=== PATIENT | male | born 1965 | race Caucasian/White ===

== ENCOUNTER 2025-04-24 15:48 | Inpatient (IN) | payer OTHER, SELFPAY ==
[2025-04-24 15:30] VITALS: BP 88/65; PULSE 110; RESP 16; TEMP 36.4; BMI 29.2
--- NOTE | 2025-04-24 15:33 | CTR_ITS ---
PROCEDURE INFORMATION: Exam: CT Head Without Contrast Exam date and time: 04/24/2025 4:14 PM Age: 60 years old Clinical indication: Weakness, extremity; Bilateral TECHNIQUE: Imaging protocol: Computed tomography of the head without contrast. Radiation optimization: All CT scans at this facility use at least one of these dose optimization techniques: automated exposure control; mA and/or kV adjustment per patient size (includes targeted exams where dose is matched to clinical indication); or iterative reconstruction. COMPARISON: CT head wo con* [id number] 12/30/2018 7:02 PM RADIATION DOSE METRICS: Total DLP (mGy-cm): 1116.38 FINDINGS: Brain: Moderate changes of global brain atrophy and chronic white matter ischemia. This has developed since the prior study in 2019. No acute ischemic change, hemorrhage, or focal mass lesion is evident. Calcification is identified in the anterior aspect of the 3rd ventricle at the level of the foramen Monro, potentially representing a chronic colloid cyst. There is no hydrocephalus associated colloid cyst. No interval change has occurred. Additional abnormal calcifications are seen. There is no evidence of intracranial mass lesion. Cerebral ventricles: See Brain finding. Paranasal sinuses: Visualized sinuses are unremarkable. No fluid levels. Mastoid air cells: Fluid is identified within the right mastoid tip consistent with mastoiditis, new from prior study. Bones: Unremarkable. No acute fracture. Soft tissues: Unremarkable. CT/CT head wo con* [id number] IMPRESSION: 1. Interval development of moderate microangiopathic white matter changes and parenchymal volume loss. 2. 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 There is no associated hydrocephalus. 3. New right mastoid fluid consistent with mastoiditis.
--- NOTE | 2025-04-24 15:33 | XRR_ITS ---
PROCEDURE INFORMATION: Exam: XR Chest Exam date and time: 04/24/2025 3:44 PM Age: 60 years old Clinical indication: Other: Weakness TECHNIQUE: Imaging protocol: Radiologic exam of the chest. Views: 1 view. COMPARISON: CR XR chest 1V [id number] 12/30/2018 9:38 PM FINDINGS: Tubes, catheters and devices: EKG leads. Lungs: Interval diuresis with resolution of previously seen pulmonary vascular prominence. Pleural spaces: Unremarkable. No pleural effusion. No pneumothorax. Heart/Mediastinum: Unremarkable. No cardiomegaly. Bones/joints: Stable lower cervical fusion hardware. Other findings: Portable upright view was obtained. XR/XR chest 1V portable [id number] IMPRESSION: 1. No acute cardiopulmonary pathology. 2. Interval decrease in pulmonary vascular congestion consistent with diuresis.
--- NOTE | 2025-04-24 15:38 | W.ED.WEAKNES ---
HPI - Weakness General: Chief complaint: Weakness Stated complaint: weakness, unable to walk Source: patient and EMS Mode of arrival: EMS Limitations: no limitations History of Present Illness: 60-year-old male who is here with generalized weakness. Per EMS he has not been able to walk or get out of his bed for roughly 3 to 4 weeks. He states he has just been laying in bed and has not been able to take care of himself. EMS states that his house was extremely dirty and he had feces and urine on his bed in his room. He denies any pain anywhere denies any fevers. Associated symptoms: Denies chest pain, chills, dysuria, fever(s), headache(s), nausea or vomiting Review of Systems Const: Reports: fatigue and malaise; Denies: fever(s), chills, body aches or change in appetite ENMT: Denies: throat pain or dental pain Card: Denies: chest pain Resp: Denies: dyspnea GI: Denies: abdominal pain, nausea, vomiting or diarrhea : Denies: dysuria Musc: Denies: neck pain or back pain Skin/Breast: Denies: rash Neuro: Denies: headache(s) PFSH ED PFSH: Medical History (Updated 04/24/25 @ 18:42 by Wayne Johnson MD) Hypertension Social History (Updated 04/24/25 @ 18:41 by Wilmer Myers MD) Smoking and tobacco/nicotine status: never used tobacco/nicotine Alcohol intake: former Substance/Drug Use: never Physical Exam Const: COMMON NORMALS: patient oriented x3 GENERAL APPEARANCE: disheveled HENMT: COMMON NORMALS: normocephalic and atraumatic HEAD & SCALP: normocephalic and atraumatic Eye: COMMON NORMALS: Equal, round and reactive pupils present and EOMs intact bilaterally PUPIL: Yes Equal, round and reactive pupils present Neck/C-Spine: COMMON NORMALS: full ROM and supple Chest: COMMONS NORMALS: normal inspection of the chest and normal palpation of entire chest wall Resp: COMMON NORMALS: normal respiratory effort, No retractions, No use of accessory muscles and clear to auscultation bilaterally AUSCULTATION: clear to auscultation bilaterally Cardio: COMMON NORMALS: regular rate, regular rhythm and No murmurs present (Cardio) RATE: regular rate RHYTHM: regular rhythm GI: COMMON NORMALS: Normal to inspection, nondistended, normoactive bowel sounds present, Soft to palpation, non-tender and no masses PALPATION: Yes Soft to palpation Extremity: COMMON NORMALS: normal to inspection and full ROM Neuro: COMMON NORMALS: patient oriented x3, moves all extremities and no focal motor deficits Psych: COMMON NORMALS: mental status grossly normal, Normal thought process present and cooperative THOUGHT PROCESS: Normal thought process present Skin: COMMON NORMALS: no rashes or lesions noted and no wounds GENERAL SKIN EXAM: no rashes or lesions noted Course Vital Signs: Vital signs: Vital Signs Temperature 97.5 F L 04/24/25 15:30 Pulse Rate 108 H 04/24/25 18:38 Respiratory Rate 16 04/24/25 18:38 Blood Pressure 107/79 04/24/25 18:38 Pulse Oximetry 100 04/24/25 18:38 Oxygen Delivery Me thod Room Air 04/24/25 18:38 MDM - Weakness Medical Decision Making Patient presents for generalized weakness blood work head CT here are normal he is not able to ambulate spoke to hospitalist will admit Lab Data I reviewed the patient's lab results. 04/24/25 15:53 04/24/25 15:53 Radiology Impressions Chest X-Ray 04/24/25 15:33 IMPRESSION: 1. No acute cardiopulmonary pathology. 2. Interval decrease in pulmonary vascular congestion consistent with diuresis. Head CT 04/24/25 15:33 IMPRESSION: 1. Interval development of moderate microangiopathic white matter changes and parenchymal volume loss. 2. 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 There is no associated hydrocephalus. 3. New right mastoid fluid consistent with mastoiditis. Laboratory Results WBC 9.38 10^3/uL (3.29-11.43) 04/24/25 15:53 RBC 3.29 10^6/uL (3.85-5.65) L 04/24/25 15:53 Hgb 9.60 g/dL (11.27-16.99) L 04/24/25 15:53 Hct 28.2 % (37-53) L 04/24/25 15:53 MCV 85.7 fl (82-101) 04/24/25 15:53 MCH 29.2 pg (27-33) 04/24/25 15:53 MCHC 34.0 g/dL (30-55) 04/24/25 15:53 RDW 14.1 % (12.1-15.1) 04/24/25 15:53 Plt Count 252 10^3/cmm (157-399) 04/24/25 15:53 MPV 10.1 fL (7.4-10.4) 04/24/25 15:53 Neut % (Auto) 76.7 % 04/24/25 15:53 Lymph % (Auto) 18.2 % 04/24/25 15:53 [place] % (Auto) 3.7 % 04/24/25 15:53 Eos % (Auto) 0.6 % 04/24/25 15:53 Baso % (Auto) 0.4 % 04/24/25 15:53 Neut # (Auto) 7.18 10^3/uL (1.8-7.7) 04/24/25 15:53 Lymph # (Auto) 1.7 10^3/uL (0.8-4.8) 04/24/25 15:53 [place] # (Auto) 0.4 10^3/uL (0.2-0.9) 04/24/25 15:53 Eos # (Auto) 0.1 10^3/uL (0.0-0.8) 04/24/25 15:53 Baso # (Auto) 0.0 10^3/uL (0.0-0.1) 04/24/25 15:53 Nucleated RBC % (auto) 0 % 04/24/25 15:53 Nucleated RBCs # 0.0 /100WBC 04/24/25 15:53 Sodium 132 mmol/L (136-145) L 04/24/25 15:53 Potassium 3.0 mmol/L (3.5-5.1) L 04/24/25 15:53 Chloride 96 mmol/L (98-107) L 04/24/25 15:53 Carbon Dioxide 22 mmol/L (22-29) 04/24/25 15:53 Anion Gap 17.0 (5-19) 04/24/25 15:53 BUN 27 mg/dL (8-23) H 04/24/25 15:53 Creatinine 1.5 mg/dL (0.7-1.2) H 04/24/25 15:53 GFR Calculation 47.4 mL/min (90-130) L 04/24/25 15:53 Glucose 90 mg/dL (65-115) 04/24/25 15:53 Calculated Osmolality 279 mOsm/kg (285-295) L 04/24/25 15:53 Calcium 8.5 mg/dL (8.5-10.5) 04/24/25 15:53 Magnesium 1.7 mg/dL (1.7-2.3) 04/24/25 15:53 Total Bilirubin 1.1 mg/dL (0.15-1.2) 04/24/25 15:53 AST 23 U/L (0-40) 04/24/25 15:53 ALT 17 U/L (0-41) 04/24/25 15:53 Alkaline Phosphatase 106 U/L (40-130) 04/24/25 15:53 Creatine Kinase 32 U/L (39-308) L 04/24/25 15:53 Total Protein 6.8 g/dL (6.6-8.7) 04/24/25 15:53 Albumin 3.2 g/dL (3.5-5.2) L 04/24/25 15:53 Globulin 3.6 g/dL (1.3-4.6) 04/24/25 15:53 TSH 3.41 uIU/mL (0.27-4.20) 04/24/25 15:53 Urine Color [place] (Yellow) A 04/24/25 17:07 Urine Appearance Clear (CLEAR) 04/24/25 17:07 Urine pH 6.0 (5-7) 04/24/25 17:07 Ur Specific [place] 1.023 (1.005-1.030) 04/24/25 17:07 Urine Protein 1+ (Negative) A 04/24/25 17:07 Urine Glucose (UA) Negative (Normal) 04/24/25 17:07 Urine Ketones Trace (Negative) 04/24/25 17:07 Urine Blood Negative (Negative) 04/24/25 17:07 Urine Nitrate Negative (Negative) 04/24/25 17:07 Urine Bilirubin Negative (Negative) 04/24/25 17:07 Urine Urobilinogen 1.0 mg/dL (Negative) 04/24/25 17:07 Ur Leukocyte Esterase Trace (Negative) A 04/24/25 17:07 Urine RBC 0-2 /hpf (0-2) 04/24/25 17:07 Urine WBC 0-5 /hpf (0-5) 04/24/25 17:07 Ur Squamous Epith Cells 0-5 /hpf (0-5) 04/24/25 17:07 Amorphous Sediment Not Reportable 04/24/25 17:07 Urine Bacteria Trace /hpf (NONE) 04/24/25 17:07 Hyaline Casts 3.71 /lpf 04/24/25 17:07 All radiology interpretation(s) finalized by discharge EKG Data EKG 1: I personally reviewed and interpreted this EKG as follows: EKG interpretation date: 04/24/25 EKG interpretation time: 15:42 Interpretation: sinus tach hr [address] elevation qrs 85 qtc 396 Discharge Plan Discharge Patient Disposition: Admitted As Inpatient Clinical Impression: Generalized weakness Condition: Stable Coding Level of Care Code ED Weight Guesser for Shira Mariscal
--- NOTE | 2025-04-24 15:42 | ECG_ITS ---
[facility] Date: 2025-04-24 Pat Name: Declan Garcia Department: Room: Gender: Male [employer]: : 1965 Requested By: Wayne Johnson Order Number: [id number] Eva MD: Melissa Joyce M.D. Measurements Intervals [place] Rate: 111 P: 55 AR: 150 QRS: 45 QRSD: 85 T: 65 QT: 330 QTc: 449 Interpretive Statements SINUS TACHYCARDIA MODERATE ST DEPRESSION [0.05+ mV ST DEPRESSION] Compared to ECG 12/30/2018 21:17:16 ST (T wave) deviation now present Sinus rhythm no longer present Electronically Signed On 04-24-2025 18:34:05 CDT by Melissa Joyce M.D. [email or web address]
--- OUTSIDE RECORDS SUMMARY | 2025-04-24 16:00 | XMS_ITS | Continuity of Care Document ---
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 Type: PLASMA No comment entered. Ordering Provider: ROCK ASHLEY Report Released Date/Time : Oct 05, 2023 02:24 PM Reporting Lab: [place] [facility] [address] [place] [address] Performin g Lab: [place] [facility] [address] [place] [address] 8 [facility] [place] [facility] COMPREHENSI VE METABOLIC PANEL CALCIUM [MASS/VOLUME] IN SERUM OR PLASMA 9.1 mg/dL 8.4 - 10.4 11/04 Specimen Type: PLASMA No comment entered. Ordering Provider: ROCK ASHLEY Report Released Date/Time : Oct 05, 2023 02:24 PM Reporting Lab: [place] [facility] [address] [place] [address] Performin g Lab: [place] [facility] [address] [place] [address] 8 [facility] COMPREHENSI VE METABOLIC PANEL PROTEIN [MASS/VOLUME] IN SERUM OR PLASMA 7.9 g/dL 6 - 8.6 11/04 Specimen Type: PLASMA No comment entered. Ordering Provider: ROCK ASHLEY Report Released Date/Time : Oct 05, 2023 02:24 PM Reporting Lab: [place] [facility] [address] [place] [address] Performin g Lab: [place] [facility] [address] [place] [address] 8 [facility] COMPREHENSI VE METABOLIC PANEL ALBUMIN [MASS/VOLUME] IN SERUM OR PLASMA 4.4 g/dL 3.4 - 5 11/04 Specimen Type: PLASMA No comment entered. Ordering Provider: ROCK ASHLEY Report Released Date/Time : Oct 05, 2023 02:24 PM Reporting Lab: [place] [facility] [address] [place] [address] Performin g Lab: [place] [facility] [address] [place] [address] 8 [facility] COMPREHENSI VE METABOLIC PANEL BILIRUBIN.TOT AL [MASS/VOLUME] IN SERUM OR PLASMA 0.6 mg/dL 0.2 - 1.2 11/04 Specimen Type: PLASMA No comment entered. Ordering Provider: ROCK ASHLEY Report Released Date/Time : Oct 05, 2023 02:24 PM Reporting Lab: [place] [facility] [address] [place] [address] Performin g Lab: [place] [facility] [address] [place] [address] [facility] [place] [facility] COMPREHENSI VE METABOLIC PANEL ALKALINE PHOSPHATASE [ENZYMATIC ACTIVITY/VOLU ME] IN SERUM OR PLASMA 75 U/L 40 - 150 11/04 Specimen Type: PLASMA No comment entered. Ordering Provider: ROCK ASHLEY Report Released Date/Time : Oct 05, 2023 02:24 PM Reporting Lab: [place] [facility] [address] [place] [address] Performin g Lab: [place] [facility] [address] [place] [address] 8 [facility] COMPREHENSI VE METABOLIC PANEL ASPARTATE AMINOTRANSFER ASE [ENZYMATIC ACTIVITY/VOLU ME] IN SERUM OR PLASMA 24 U/L 5 - 34 11/04 Specimen Type: PLASMA No comment entered. Ordering Provider: ROCK ASHLEY Report Released Date/Time : Oct 05, 2023 02:24 PM Reporting Lab: [place] [facility] [address] [place] [address] Performin g Lab: [place] [facility] [address] [place] [address] 8 [facility] COMPREHENSI VE METABOLIC PANEL ALANINE AMINOTRANSFER ASE [ENZYMATIC ACTIVITY/VOLU ME] IN SERUM OR PLASMA 29 U/L 8 - 40 11/04 Specimen Type: PLASMA No comment entered. Ordering Provider: ROCK ASHLEY Report Released Date/Time : Oct 05, 2023 02:24 PM Reporting Lab: [place] [facility] [address] [place] [address] Performin g Lab: [place] [facility] [address] [place] [address] 8 [facility] COMPREHENSI VE METABOLIC PANEL GLOMERULAR FILTRATION RATE/1.73 SQ M.PREDICTED [VOLUME RATE/AREA] IN SERUM, PLASMA OR BLOOD BY CREATININE-BA SED FORMULA (CKD-EPI 2020) 89 11/04 Specimen Type: PLASMA No comment entered. Ordering Provider: ROCK ASHLEY Report Released Date/Time : Oct 05, 2023 02:24 PM Reporting Lab: [place] [facility] [address] [place] [address] Performin g Lab: [place] [facility] [address] [place] [address] 8 [facility] HGA1C HEMOGLOBIN A1C/HEMOGLOBI N.TOTAL IN BLOOD 5.3 4.0 - 6.0 11/04 Specimen Type: BLOOD No comment entered. Ordering Provider: ROCK ASHLEY Report Released Date/Time : Oct 05, 2023 02:24 PM Reporting Lab: [place] [facility] [address] [place] [address] Performin g Lab: [place] [facility] [address] [place] [address] 8 [facility] PROST. SPECIFIC AG.(PB-STL) PROSTATE SPECIFIC AG [MASS/VOLUME] IN SERUM OR PLASMA 0.33 ng/mL 0 - 4 11/04 Specimen Type: SERUM Comment: Repeated to verify. Ordering Provider: ROCK ASHLEY Report Released Date/Time : Oct 05, 2023 02:24 PM Reporting Lab: [place] [facility] [address] [place] [address] Performin g Lab: [place] [facility] [address] [place] [address] 8 [facility] TSH (MA-PB-STL) THYROTROPIN [UNITS/VOLUME ] IN SERUM OR PLASMA 2.159 u[IU]/ mL 0.47 - 5 11/04 Specimen Type: SERUM Comment: Repeated to verify. Ordering Provider: ROCK ASHLEY Report Released Date/Time : Oct 05, 2023 02:24 PM Reporting Lab: [place] [facility] [address] [place] [address] Performin g Lab: [place] [facility] [address] [place] [address] 8 [facility] VITAMIN D, 25-HYDROXY 25-HYDROXYVIT IRENE D3 [MASS/VOLUME] IN SERUM OR PLASMA <3.4ng /mL 30 - 96 11/04 L Specimen Type: SERUM Comment: Repeated to verify. Ordering Provider: ROCK ASHLEY Report Released Date/Time : Oct 05, 2023 02:24 PM Reporting Lab: [place] [facility] [address] [place] [address] Performin g Lab: [place] [facility] [address] [place] [address] [facility] Encounters Combined list of: 1) Encounters from Department of [facility] facilities going backup to the last 18 months, not all [place] inpatient encounters are included; 2) Encounters from the Department of [facility] facilities going backup to 280 months. Location Location Details Encounter Type Encounter Number Reason For Visit Attending Provider ADM Date DC Date Status Disposition Source [facility], [place] [facility] OUTPATIENT [id number] CLAWED BY GEN JOSE 09/10 Released w/o Limitations [facility] [employer] [place] [place] [facility] [place] OUTPATIENT [id number] BANDAR ASCENCIO 06/05 Released w/o Limitations [facility] [employer] [place] [facility], [place] TELE CONSULT [id number] TYLER HANSEN JR 07/08 [facility] [employer] [facility], [place]) OUTPATIENT [id number] TIEN HILL 10/13 Released w/o Limitations [facility] [employer] [facility] [place] TELE CONSULT [id number] med KRISTI Kiran 05/17 [facility] [employer] [facility] [place] TELE CONSULT [id number] Med manuela ALBERTBRYISAAKELAN R J 07/05 [facility] [employer] [facility], [place] [id number] SABIHA HERRERA 04/17 Released w/o Limitations [facility] [employer] [facility] [place] [id number] 3 DAY BP CHECK/D AY 1 AM ZELDA RICHARDS 04/17 Released w/o Limitations [facility] [employer] [place] [facility] [place] [id number] 3 DAY BP CHECK/D AY 1 PM ZELDA RICHARDS 04/17 Released w/o Limitations [facility] [employer] [place] [facility] [place] [id number] 3 Day BP Check 2 Day am [facility] 7-101 RAJESH MONREAL L 04/18 Released w/o Limitations [facility] [employer] [place] [facility] [place] [id number] 3 DAY BP CHECK/D AY 2 PM RAJESH MONREAL L 04/18 Released w/o Limitations [facility] [employer] [facility] [place] [id number] 3 Day BP Check Day 3 am ZELDA RICHARDS 04/19 Released w/o Limitations [facility] [employer] [facility] [place]) [place] [id number] pt 2 phyt ZELDA RICHARDS [facility] 04/19 Released w/o Limitations [facility] [place] [facility] [place] [id number] bp check ZELDA RICHARDSCKER 04/19 Released w/o Limitations [facility] [place] ZANE MEDRANOIAN Lauryn [facility]( [facility]at [facility] [place]) OUTPATIENT [id number] typhoid KARSTEN REAVES 07/02 Released w/o Limitations [facility] TAZ D [facility] -PYONGT [facility](Imm unizati ons [place]) ZANE TAZ D [facility]( [facility] [place]) OUTPATIENT [id number] med JUVE Roy 07/30 Released w/o Limitations [facility] TA[facility] D [facility] [place]) ZANE TAZ D [facility]UMYA[facility]( Immunizat ions [place]) OUTPATIENT [id number] Hep B ELAN FLOR 10/25 Released w/o Limitations ZANE Combs [facility]izati [facility] [place]) ZANE Combs [facility]( Immunizat ions [place]) OUTPATIENT [id number] Anthrax ELAN FLOR 10/25 Released w/o Limitations ZANE MCGHEE D [facility](Imm [facility]izati [facility] [place]) ZANE Combs [facility]( [facility]) OUTPATIENT [id number] [facility] [id number] GEN TAVAREZ 02/04 Released w/o Limitations [facility] TAZ D [facility] [place]) ZANE Combs [facility]( [facility] [place]) OUTPATIENT [id number] wants sleep study NATALIIA TUCKER 04/22 Released w/o Limitations [facility] TAZ PEREZGOOD -[facility] [place]) [facility] TAZ Combs SAUMYA-P HERVETAEK( Immunizat ions [place]) OUTPATIENT [id number] Anthrax , PPD ELAN FLOR Iron 05/07 Released w/o Limitations [facility] TAZ PEREZGOOD -PYONGT [facility](Imm unizati [facility] [place]) [facility] [place] TELE CONSULT [id number] Med refill needed for Lansopr azole 2 BSTB ALBER MÉNDEZ Baljinder 09/02 [facility] [employer] [facility] [employer] [place] [id number] left inese r CARTER CONDON 05/12 Released w/o Limitations [facility] [employer] [place] [facility] [place] [id number] TAZ Dubois 05/28 Released w/o Limitations [facility] [employer] [place] [facility] [place] [id number] back pain CARTER CONDON 07/30 Released w/o Limitations [facility] [employer] [place] [facility] [employer] [place] [id number] back pain JANET POLANCO 12/08 Released w/o Limitations [facility] [employer] [facility] [employer] [place] [id number] follow up JANET POLANCO 12/21 Released w/o Limitations [facility] [employer] [facility] [employer] [place] [id number] follow up JANET POLANCO Lauryn 12/28 Released w/o Limitations [facility] [employer] [place] [facility] [employer] [place] [id number] fol up JANET POLANCO Lauryn 01/06 Released w/o Limitations [facility] [employer] [place] [facility] [employer] [place] [id number] followu p JANET POLANCO Lauryn 01/13 Released w/o Limitations [facility] [employer] [place] [facility] [employer] [place] [id number] follow up JANET POLANCO Lauryn 01/24 Released w/o Limitations [facility] [employer] [facility] [employer] [place] [id number] follow up JANET POLANCO Lauryn 02/02 Released w/o Limitations [facility] [employer] [place] [facility] [employer] [place] [id number] followu p JANET POLANCO Lauryn 02/07 Released w/o Limitations [facility] [employer] [facility] [employer] [place] [id number] walkin JANET POLANCO Lauryn 02/08 Released w/o Limitations [facility] [employer] [facility] [employer] [place] [id number] follow up JANET POLANCO Lauryn 02/09 Released w/o Limitations [facility] [employer] [facility] [place] [id number] SHERRIJANET Tena 02/10 Released w/o Limitations [facility] [employer] [facility] [employer] [place] [id number] followu SHERRIJANET Tena 02/11 Released w/o Limitations [facility] [employer] [facility] [place] [id number] [facility] w/o Limitations [facility] [employer] [place] [facility] [employer] [place] [id number] [facility] Released w/o Limitations [facility] [employer] [facility] [employer] [place] [id number] [facility] 02/16 Released w/o Limitations [facility] [employer] [facility] [employer] [place] [id number] [facility] 02/17 Released w/o Limitations [facility] [employer] [facility] [employer] [place] [id number] [facility] 02/18 Released w/o Limitations [facility] [employer] [facility] [employer] [place] [id number] spine [facility] JANET Combs 02/21 Released w/o Limitations [facility] [employer] [place] [facility] [employer] [place] [id number] spine [facility] 02/22 Released w/o Limitations [facility] [employer] [facility] [employer] [place] [id number] spine [facility] 02/23 Released w/o Limitations [facility] [employer] [facility] [employer] [place] [id number] spine [facility] 02/24 Released w/o Limitations [facility] [employer] [facility] [place] [id number] spine [facility] 02/25 Released w/o Limitations [facility] [employer] [facility] [place] [id number] spine [facility] 02/28 Released w/o Limitations [facility] [employer] [facility] [place] [id number] spine [facility] 03/01 Released w/o Limitations [facility] [employer] [facility] [place] [id number] spine [facility] 03/02 Released w/o Limitations [facility] [employer] [facility] [place] [id number] spine [facility] 03/08 Released w/o Limitations [facility] [employer] [facility] [employer] [place] [id number] spine med JANET POLANCO Lauryn 03/09 Released w/o Limitations [facility] [employer] [facility] [employer] [place] [id number] spine med JANET POLANCO Lauryn 03/10 Released w/o Limitations [facility] [employer] [facility] [employer] [place] [id number] SHERRIJANET IVY Lauryn 03/11 Released w/o Limitations [facility] [employer] [facility] [employer] [place] [id number] needs pieetr CARTER CONDON 04/27 Released w/o Limitations [facility] [employer] [facility] [employer] [place] [id number] f/u per provide r CARTER CONDON 04/29 Released w/o Limitations [facility], [employer]([facility]) [facility], [employer]) OUTPATIENT [id number] intake CARRIE TREJO 06/28 Released w/o Limitations [facility], [employer]([facility]) [facility], [employer], [place] OUTPATIENT [id number] FU UPDATE PROFILE /CARTER HURD 08/24 Released with Work/Duty Limitations [facility], [employer]) [facility], [employer] TELE CONSULT [id number] Notes Entered by: LENNIE TREJO 09 Sep 2012 1454 ------- ------- ------- ------- -- Profile VIVIANAANTHONY CASTROMARGEI Gale 09/09 [facility] for [facility] [place] [place]) OUTPATIENT [id number] f/u VIVIANAANTHONY CASTROMARGIE Gale 09/12 [facility]ased w/o Limitations [facility] [place] [place] TELE CONSULT [id number] Notes Entered by: LENNIE TREJO 14 Sep 2012 0802 ------- ------- ------- ------- -- ETS Paperwo rk VIVIANALONI CASTROGONZALO Gale 09/14 [facility] for App[facility] [place] OFFICE O/P EST MOD 30 MIN [id number] Diagnos is: ICD-10- CM I10 Essenti al (primar y) hyperte Mallika Arguello 11/04 [facility] SPECIAL SUPPLIES PHYS/QHP [id number] Diagnos is: ICD-10- CM G47.33 Obstruc tive sleep apnea (adult) ([facility] ashlie) CECE MALLORY B 11/04 [facility] Outpatient Encounter [id number] EDYSI VALLADARES IE L 12/23 [place] [facility] Outpatient Encounter [id number] MIAH ALONSO OU V 01/30 [place] [facility] [id number] ANGELO JENKINS L 03/13 [facility] Outpatient Encounter [id number] 10/31 [facility] Outpatient Encounter [id number] 577 04/02 [facility] Procedures Combined list of: 1) Procedures from Department of [facility] Affairs facilities going back up to thelast 18 months, not all VA non-surgical procedures are included; 2) All procedures from the Department of Defense facilities. Procedure Procedure Type Code Date Perfomer Comments Sourc e THERAPEUTIC OR DIAGNOSTIC INJECTION (SPECIFY MATERIAL INJECTED); INTRAVENOUS 002 [facility] ANTHRAX VACCINE, FOR SUBCUTANEOUS OR INTRAMUSCULAR USE 009 [facility] FITTING OF SPECTACLES, EXCEPT FOR APHAKIA; BIFOCAL 009 [facility] ANTHRAX VACCINE, FOR SUBCUTANEOUS OR INTRAMUSCULAR USE 009 DoD HEPATITIS B VACCINE (HEPB), ADULT DOSAGE, 3 DOSE SCHEDULE, FOR INTRAMUSCULAR USE 009 [facility] TYPHOID VACCINE, ACETONE-KILLED, DRIED (AKD), FOR SUBCUTANEOUS USE (U.S. ) 008 DoD HEPATITIS B VACCINE (HEPB), ADULT DOSAGE, 3 DOSE SCHEDULE, FOR INTRAMUSCULAR USE 001 DoD SPECIAL REPORTS SUCH INSURANCE FORMS, MORE THAN THE INFORMATION CONVEYED IN THE USUAL MEDICAL COMMUNICATIONS OR STANDARD REPORTING FORM 001 [facility] EDUCATIONAL SUPPLIES, SUCH BOOKS, TAPES, AND PAMPHLETS, FOR THE PATIENT'S EDUCATION AT COST TO PHYSICIAN OR OTHER QUALIFIED HEALTH SCREEN DOOR MAKER 001 [facility] HEPATITIS B VACCINE (HEPB), ADULT DOSAGE, 3 DOSE SCHEDULE, FOR INTRAMUSCULAR USE 001 DoD SKIN TEST; TUBERCULOSIS, INTRADERMAL 001 DoD SELF-CARE/HOME MANAGMENT TRAIN (EG,ACT OF DAILY LIVING (ADL) &COMPENSAT TRAIN,MEAL PREPARATION,SAFETY PROCS,AND INSTRUCT IN USE OF ASST TECHNOLOGY DEV/ADPT EQUIP) DIR ONE-ON-ONE CONT,EA 15 MINUTES DoD EAR PROTECTOR ATTENUATION MEASUREMENTS 999 DoD SPECIAL REPORTS SUCH INSURANCE FORMS, MORE THAN THE INFORMATION CONVEYED IN THE USUAL MEDICAL COMMUNICATIONS OR STANDARD REPORTING FORM DoD EAR PROTECTOR ATTENUATION MEASUREMENTS 999 DoD APPLICATION OF A MODALITY TO 1 OR MORE AREAS; HOT OR COLD PACKS DoD APPLICATION OF A MODALITY TO 1 OR MORE AREAS; HOT OR COLD PACKS DoD APPLICATION OF A MODALITY TO 1 OR MORE AREAS; HOT OR COLD PACKS 012 DoD APPLICATION OF A MODALITY TO 1 OR MORE AREAS; HOT OR COLD PACKS DoD APPLICATION OF A MODALITY TO 1 OR MORE AREAS; HOT OR COLD PACKS DoD APPLICATION OF A MODALITY TO 1 OR MORE AREAS; HOT OR COLD PACKS 012 DoD APPLICATION OF A MODALITY TO 1 OR MORE AREAS; TRACTION, MECHANICAL DoD APPLICATION OF A MODALITY TO 1 OR MORE AREAS; ELECTRICAL STIMULATION (UNATTENDED) 012 DoD APPLICATION OF A MODALITY TO 1 OR MORE AREAS; ELECTRICAL STIMULATION (UNATTENDED) 012 DoD APPLICATION OF A MODALITY TO 1 OR MORE AREAS; ELECTRICAL STIMULATION (UNATTENDED) 012 DoD APPLICATION OF A MODALITY TO 1 OR MORE AREAS; ELECTRICAL STIMULATION (UNATTENDED) 012 DoD APPLICATION OF A MODALITY TO 1 OR MORE AREAS; ELECTRICAL STIMULATION (UNATTENDED) 012 DoD APPLICATION OF A MODALITY TO 1 OR MORE AREAS; ELECTRICAL STIMULATION (UNATTENDED) 012 DoD APPLICATION OF A MODALITY TO 1 OR MORE AREAS; TRACTION, MECHANICAL DoD APPLICATION OF A MODALITY TO 1 OR MORE AREAS; TRACTION, MECHANICAL DoD APPLICATION OF A MODALITY TO 1 OR MORE AREAS; HOT OR COLD PACKS DoD APPLICATION OF A MODALITY TO 1 OR MORE AREAS; HOT OR COLD PACKS 012 DoD MANUAL THERAPY TECHNIQUES (EG, MOBILIZATION/ MANIPULATION, MANUAL LYMPHATIC DRAINAGE, MANUAL TRACTION), 1 OR MORE REGIONS, EACH 15 MINUTES DoD MANUAL THERAPY TECHNIQUES (EG, MOBILIZATION/ MANIPULATION, MANUAL LYMPHATIC DRAINAGE, MANUAL TRACTION), 1 OR MORE REGIONS, EACH 15 MINUTES DoD MANUAL THERAPY TECHNIQUES (EG, MOBILIZATION/ MANIPULATION, MANUAL LYMPHATIC DRAINAGE, MANUAL TRACTION), 1 OR MORE REGIONS, EACH 15 MINUTES DoD MANUAL THERAPY TECHNIQUES (EG, MOBILIZATION/ MANIPULATION, MANUAL LYMPHATIC DRAINAGE, MANUAL TRACTION), 1 OR MORE REGIONS, EACH 15 MINUTES [facility] APPLICATION OF A MODALITY TO 1 OR MORE AREAS; HOT OR COLD PACKS [facility] APPLICATION OF A MODALITY TO 1 OR MORE AREAS; HOT OR COLD PACKS DoD APPLICATION OF A MODALITY TO 1 OR MORE AREAS; HOT OR COLD PACKS DoD APPLICATION OF A MODALITY TO 1 OR MORE AREAS; HOT OR COLD PACKS DoD APPLICATION OF A MODALITY TO 1 OR MORE AREAS; HOT OR COLD PACKS DoD APPLICATION OF A MODALITY TO 1 OR MORE AREAS; HOT OR COLD PACKS DoD APPLICATION OF A MODALITY TO 1 OR MORE AREAS; HOT OR COLD PACKS [facility] CHIROPRACTIC MANIPULATIVE TREATMENT (CMT); SPINAL, 1-2 REGIONS [facility] INDIVIDUAL PSYCHOTHERAPY, INSIGHT ORIENTED, BEHAVIOR MODIFYING AND/OR SUPPORTIVE, IN AN OFFICE OR OUTPATIENT FACILITY, APPROXIMATELY 45 TO 50 MINUTES [id number] WITH THE PATIENT [facility] INDIVIDUAL PSYCHOTHERAPY, INSIGHT ORIENTED, BEHAVIOR MODIFYING AND/OR SUPPORTIVE, IN AN OFFICE OR OUTPATIENT FACILITY, APPROXIMATELY 45 TO 50 MINUTES [id number] WITH THE PATIENT [facility] INDIVIDUAL PSYCHOTHERAPY, INSIGHT ORIENTED, BEHAVIOR MODIFYING AND/OR SUPPORTIVE, IN AN OFFICE OR OUTPATIENT FACILITY, APPROXIMATELY 45 TO 50 MINUTES [id number] WITH THE PATIENT [facility] PSYCHIATRIC DIAGNOSTIC INTERVIEW EXAMINATION [facility] SKIN TEST; TUBERCULOSIS, INTRADERMAL [facility] PSYCHIATRIC EVALUATION OF HOSPITAL RECORDS, OTHER PSYCHIATRIC REPORTS, PSYCHOMETRIC AND/OR PROJECTIVE TESTS, AND OTHER ACCUMULATED DATA FOR MEDICALDIAGNOSTIC PURPOSES [facility] HEALTH&BEHAV ASSESSMENT (EG, HEALTH-FOC CLINICAL INTERVIEW, BEHAVIORAL OBSERVATIONS, PSYCHOPHYSICOLOGICAL MONITOR, HEALTH-ORIENT QUESTIONNAIRES), EA 15 MIN [id number] W THE PATIENT; INIT ASSESSMENT [facility] SIMPLE REPAIR OF SUPERFICIAL WOUNDS OF SCALP, NECK, AXILLAE, EXTERNAL GENITALIA, TRUNK AND/OR EXTREMITIES (INCLUDING HANDS AND FEET); 2.5 CM OR LESS [facility] SKIN TEST; TUBERCULOSIS, INTRADERMAL [facility] INFLUENZA VIRUS VACCINE, PANDEMIC FORMULATION, H1N1 [facility] INFLUENZA VIRUS VACCINE, TRIVALENT, LIVE (LAIV3), FOR INTRANASAL USE 009 [facility] ANALYSIS OF CLINICAL DATA STORED IN COMPUTERS (EG, ECGS, BLOOD PRESSURES, HEMATOLOGIC DATA) [facility] HEPATITIS B VACCINE (HEPB), ADULT DOSAGE, 3 DOSE SCHEDULE, FOR INTRAMUSCULAR USE [facility] INTERPRETATION OR EXPLANATION OF RESULTS OF PSYCHIATRIC, OTH MEDICAL EXAMS/PROCEDURES, OR OTH ACCUMULATED DATA TO FAMILY OR OTH RESPONSIBLE PERSONS,OR ADVISING THEM HOW TO ASSIST PATIENT [facility] INTERPRETATION OR EXPLANATION OF RESULTS OF PSYCHIATRIC, OTH MEDICAL EXAMS/PROCEDURES, OR OTH ACCUMULATED DATA TO FAMILY OR OTH RESPONSIBLE PERSONS,OR ADVISING THEM HOW TO ASSIST PATIENT 006 [facility] INTERPRETATION OR EXPLANATION OF RESULTS OF PSYCHIATRIC, OTH MEDICAL EXAMS/PROCEDURES, OR OTH ACCUMULATED DATA TO FAMILY OR OTH RESPONSIBLE PERSONS,OR ADVISING THEM HOW TO ASSIST PATIENT [facility] PSYCHIATRIC DIAGNOSTIC INTERVIEW EXAMINATION [facility] ENVIRONMENTAL INTERVENTION FOR MEDICAL MGMT PURPOSES ON A PSYCHIATRIC PATIENT'S BEHALF WITH AGENCIES, EMPLOYERS, OR INSTITUTIONS [facility] SKIN TEST; TUBERCULOSIS, INTRADERMAL [facility] TETANUS AND DIPHTHERIA TOXOIDS (TD) ADSORBED WHEN ADMINISTERED TO INDIVIDUALS 7 YEARS OR OLDER, FOR INTRAMUSCULAR USE [facility] ELBOW ORTHOSIS, ELASTIC, PREFABRICATED, INCLUDES FITTING AND ADJUSTMENT (E.G. NEOPRENE, LYCRA) 005 [facility] PURE TONE AUDIOMETRY (THRESHOLD); AIR ONLY [facility] OPHTHALMOLOGICAL SERVICES: MEDICAL EXAMINATION AND EVALUATION WITH INITIATION OF DIAGNOSTIC AND TREATMENT PROGRAM; INTERMEDIATE, NEW PATIENT [facility] SPECIAL REPORTS SUCH INSURANCE FORMS, MORE THAN THE INFORMATION CONVEYED IN THE USUAL MEDICAL COMMUNICATIONS OR STANDARD REPORTING FORM [facility] EDUCATIONAL SUPPLIES, SUCH BOOKS, TAPES, AND PAMPHLETS, FOR THE PATIENT'S EDUCATION AT COST TO PHYSICIAN OR OTHER QUALIFIED HEALTH SCREEN DOOR MAKER [facility] EDUCATIONAL SUPPLIES, SUCH BOOKS, TAPES, AND PAMPHLETS, FOR THE PATIENT'S EDUCATION AT COST TO PHYSICIAN OR OTHER QUALIFIED HEALTH SCREEN DOOR MAKER [facility] Spectacles Services Fitting Bifocals (Not For Aphakia) Spectacles Services Fitting Bifocals (Not For Aphakia) 09200 009 GEN TAVAREZ Determination Of Refractive State Determination Of Refractive State [id number] GEN TAVAREZ Ophthalmological New Patient Start Comprehensive Care Ophthalmological New Patient Start Comprehensive Care 26058 009 GEN TAVAREZ Anthrax Vaccine, For Subcutaneous Use Anthrax Vaccine, For Subcutaneous Use 87121 009 MOHINDER FLOR Hepatitis B Vaccine (Active); 20 Years and Above Hepatitis B Vaccine (Active); 20 Years and Above 97639 009 MOHINDER FLOR Typhoid Vac Acet-Killed, Dried (U.S. ) For Subcut Typhoid Vac Acet-Killed, Dried (U.S. ) For Subcut 55349 008 KARSTEN REAVES [facility] Special Services Analysis Of Computerized Data Special Services Analysis Of Computerized Data 17808 008 SABIHA HERRERA Audiometry Group Testing Audiometry Group Testing 24971 008 SABIHA HERRERA Threshold Audiogram (Pure Tone) Threshold Audiogram (Pure Tone) 45224 008 SABIHA HERRERA Social Work Family Medial Psychother (w/o Patient) Guardians Social Work Family Medial Psychother (w/o Patient) Guardians [phone] JANET ESPARZA Social Work Family Medial Psychother (w/o Patient) Guardians Social Work Family Medial Psychother (w/o Patient) Guardians [phone] JANET ESPARZA Social Work Family Medial Psychother (w/o Patient) Guardians Social Work Family Medial Psychother (w/o Patient) Guardians [phone] JANET ESPARZA Psychiatric Evaluation Comprehensive Examination Psychiatric Evaluation Comprehensive Examination [phone] JANET ESPARZA Psychiatric Therapy Environmental Intervention Psychiatric Therapy Environmental Intervention [phone] HONG CABALLERO Elbow orthosis, elastic, prefabricated, includes fitting and adjustment (e.g., neoprene, Lycra) 005 BRIA WILSON Modalities Heat Hot Packs Modalities Heat Hot Packs 83688 012 [facility] Mod[facility] Traction Modalities Traction 61077 0 012 [facility] Mod[facility] Electrical Stimulation Unattended Modalities Electrical Stimulation Unattended 27900 012 [facility] Mod[facility] Heat Hot Packs Modalities Heat Hot Packs 80407 012 [facility] JANET Combs DoD Modalities Electrical Stimulation Unattended Modalities Electrical Stimulation Unattended 06755 012 [facility] Modalities Traction Modalities Traction 20964 0 012 [facility] JANET Combs DoD Modalities Heat Hot Packs Modalities Heat Hot Packs 76818 [facility] Mod[facility] Electrical Stimulation Unattended Modalities Electrical Stimulation Unattended 12450 012 [facility] JANET Combs DoD Modalities Traction Modalities Traction 16370 0 012 [facility] Modalities Heat Hot Packs Modalities Heat Hot Packs 37939 012 [facility] Modalities Traction Modalities Traction 33799 0 012 [facility] Modalities Electrical Stimulation Unattended Modalities Electrical Stimulation Unattended 60923 [facility] Modalities Heat Hot Packs Modalities Heat Hot Packs 45677 012 [facility] Modalities Electrical Stimulation Unattended Modalities Electrical Stimulation Unattended 53285 012 SHERRIJANET Tena DoD Modalities Traction Modalities Traction 21978 0 012 [facility] Mod[facility] Electrical Stimulation Unattended Modalities Electrical Stimulation Unattended 84232 012 [facility] Modalities Heat Hot Packs Modalities Heat Hot Packs 48297 [facility] Modalities Traction Modalities Traction 23660 0 012 [facility] J[facility]ET Combs DoD Modalities Electrical Stimulation Unattended Modalities Electrical Stimulation Unattended 14107 012 [facility] Modalities Traction Modalities Traction 80262 0 012 [facility] Modalities Heat Hot Packs Modalities Heat Hot Packs 17381 012 [facility] Modalities Electrical Stimulation Unattended Modalities Electrical Stimulation Unattended 19722 012 [facility] Modalities Traction Modalities Traction 00453 0 012 [facility] Modalities Heat Hot Packs Modalities Heat Hot Packs 11043 [facility] Modalities Electrical Stimulation Unattended Modalities Electrical Stimulation Unattended 06697 [facility] Mod[facility] Heat Hot Packs Modalities Heat Hot Packs 12575 [facility] Modalities Traction Modalities Traction 12005 0 [facility] Modalities Heat Hot Packs Modalities Heat Hot Packs 76906 [facility] Modalities Traction Modalities Traction 99569 0 [facility] Modalities Electrical Stimulation Unattended Modalities Electrical Stimulation Unattended 92772 [facility] Modalities Heat Hot Packs Modalities Heat Hot Packs 68306 [facility] Modalities Traction Modalities Traction 11644 0 [facility] Modalities Electrical Stimulation Unattended Modalities Electrical Stimulation Unattended 21520 [facility] Modalities Electrical Stimulation Unattended Modalities Electrical Stimulation Unattended 60551 012 [facility] Modalities Heat Hot Packs Modalities Heat Hot Packs 96021 [facility] Modalities Traction Modalities Traction 77655 0 [facility] Mobilization Soft Ti ue Mobilization Sof t Tissue 27760 [facility] Modalities Heat Hot Packs Modalities Heat Hot Packs 74707 [facility] Modalities Traction Modalities Traction 63401 0 [facility] Modalities Electrical Stimulation Unattended Modalities Electrical Stimulation Unattended 51572 012 SHERRIJANET Tena DoD Mobilization Soft Ti ue Mobilization Sof t Tissue 81972 SHERRIJANET Tena Modalities Traction Modalities Traction 09872 0 012 [facility] Mod[facility] Electrical Stimulation Unattended Modalities Electrical Stimulation Unattended 32568 SHERRIJANET Tena Modalities Heat Hot Packs Modalities Heat Hot Packs 02709 [facility] Mod[facility] Heat Hot Packs Modalities Heat Hot Packs 22605 SHERRIJANET Tena Mobilization Soft Ti ue Mobilization Sof t Tissue 28145 [facility] Mod[facility] Electrical Stimulation Unattended Modalities Electrical Stimulation Unattended 03558 [facility] Mod[facility] Traction Modalities Traction 83413 0 SHERRIJANET Tena Mobilization Soft Ti ue Mobilization Sof t Tissue 60532 [facility] Mod[facility] Heat Hot Packs Modalities Heat Hot Packs 60842 SHERRIJANET Tena [facility] Chiropractic Manip Treatmt (CMT) Spinal One To Two Regions Chiropractic Manip Treatmt (CMT) Spinal One To Two Regions 78059 012 SHERRIJANET Tena Modalities Electrical Stimulation Unattended Modalities Electrical Stimulation Unattended 89279 [facility] Heat Hot Packs Modalities Heat Hot Packs 92899 SHERRIJANET Tena [facility] Chiropractic Manip Treatmt (CMT) Spinal One To Two Regions Chiropractic Manip Treatmt (CMT) Spinal One To Two Regions 02498 012 [facility] Modalities Electrical Stimulation Unattended Modalities Electrical Stimulation Unattended 93273 [facility] Mod[facility] Heat Hot Packs Modalities Heat Hot Packs 72282 SHERRIJANET Tena [facility] Chiropractic Manip Treatmt (CMT) Spinal One To Two Regions Chiropractic Manip Treatmt (CMT) Spinal One To Two Regions 55722 012 SHERRIJANET Tena Modalities Electrical Stimulation Unattended Modalities Electrical Stimulation Unattended 80362 SHERRIJANET Tena Chiropractic Manip Treatmt (CMT) Spinal One To Two Regions Chiropractic Manip Treatmt (CMT) Spinal One To Two Regions 64250 012 SHERIRJANET Tena Modalities Electrical Stimulation Unattended Modalities Electrical Stimulation Unattended 06003 SHERRIJANET Tena Modalities Heat Hot Packs Modalities Heat Hot Packs 37746 [facility] Mod[facility] Heat Hot Packs Modalities Heat Hot Packs 05152 SHERRIJANET Tena Chiropractic Manip Treatmt (CMT) Spinal One To Two Regions Chiropractic Manip Treatmt (CMT) Spinal One To Two Regions 66674 SHERRIJANET Tena Modalities Electrical Stimulation Unattended Modalities Electrical Stimulation Unattended 52148 SHERRIJANET Tena Modalities Electrical Stimulation Unattended Modalities Electrical Stimulation Unattended 71302 SHERRIJANET Tena Modalities Heat Hot Packs Modalities Heat Hot Packs 60785 SHERRIJANET Tena Chiropractic Manip Treatmt (CMT) Spinal One To Two Regions Chiropractic Manip Treatmt (CMT) Spinal One To Two Regions 44064 SHERRIJANET Tena Modalities Heat Hot Packs Modalities Heat Hot Packs 26878 SHERRIJANET Tena Modalities Electrical Stimulation Unattended Modalities Electrical Stimulation Unattended 26129 SHERRIJANET Tena Chiropractic Manip Treatmt (CMT) Spinal One To Two Regions Chiropractic Manip Treatmt (CMT) Spinal One To Two Regions 23636 SHERRIJANET Tena Chiropractic Manip Treatmt (CMT) Spinal One To Two Regions Chiropractic Manip Treatmt (CMT) Spinal One To Two Regions 90139 012 SHERRIJANET Tena Modalities Heat Hot Packs Modalities Heat Hot Packs 23207 SHERRIJANET Tena Modalities Electrical Stimulation Unattended Modalities Electrical Stimulation Unattended 77496 012 JANET POLANCO [facility] Social Work Individual Outpatient Counseling 45-50 Minutes Social Work Individual Outpatient Counseling 45-50 Minutes 12044 011 BRIA TORRES [facility] Social Work Individual Outpatient Counseling 45-50 Minutes Social Work Individual Outpatient Counseling 45-50 Minutes 14619 011 BRIA TORRES [facility] Social Work Individual Outpatient Counseling 45-50 Minutes Social Work Individual Outpatient Counseling 45-50 Minutes 73680 011 BRIA TORRES [facility] Psychiatric Evaluation Comprehensive Examination Psychiatric Evaluation Comprehensive Examination 75453 011 COURTNEY MÉNDEZ [facility] Psychiatric Evaluation Review of Records and Reports Psychiatric Evaluation Review of Records and Reports 53782 011 ROSSY LAGOS [facility] Health And Behav A e mt Each 15 Min Initial A e ment Health And Behav Assessmt Each 15 Min Initial Assessment 80601 011 [place] [facility] Supervised Injection Supervised Injection 47477 011 TAZ CASEY [facility] Skin Test Anergy Tuberculin Intradermal Skin Test Anergy Tuberculin Intradermal 27567 009 MOHINDER FLOR [facility] Anthrax Vaccine, For Subcutaneous Use 009 MOHINDER FLOR [facility] Social History Combined list of available smoking, tobacco, and other social history from Department of Defense and Veterans Affairs facilities. Social History Type Response Date Comment Source Tobacco smoking status NHIS VA-TOBACCO DOESNT USE [place] 30 MIN WAKEUP 04/07/2023 [facility] History of tobacco use VA-TOBACCO USE 30 YEARS OR MORE 04/07/2023 [facility] History of tobacco use VA-TOBACCO USER EVERY DAY 12/25/2021 [facility] History of tobacco use VA-TOBACCO USER EVERY DAY 01/21/2021 [facility] History of tobacco use VA-TOBACCO USE MED NO 11/30/2019 [facility] History of tobacco use TOBACCO USER OFFERED MEDS 05/05/2018 [facility] History of tobacco use TOBACCO USER OFFERED MEDS 07/12/2017 [facility] History of tobacco use CURRENT TOBACCO USER 10/28/2016 [facility] History of tobacco use HF V9 CURRENT SMOKER 05/23/2015 2 packs a day [facility] History of tobacco use HF TOBACCO CESSATION <12 MONTHS 01/02/2014 quit smoking 6 mos ago. [facility] This section is an empty social history section. [facility]
[2025-04-24 16:10] LABS: Hematocrit 28.2 % (37-53); Hemoglobin 9.60 g/dL (11.27-16.99); Mean Corpuscular HGB Conc 34.0 g/dL (30-55); Mean Corpuscular Hemoglobin 29.2 pg (27-33); Mean Corpuscular Volume 85.7 fl (82-101); Nucleated Red Blood Cells % 0 %; Platelet Count 252 10^3/cmm (157-399); Red Blood Count 3.29 10^6/uL (3.85-5.65); White Blood Count 9.38 10^3/uL (3.29-11.43)
--- OUTSIDE RECORDS SUMMARY | 2025-04-24 16:12 | XMS_ITS | Clinical Summary ---
Author Organization [facility] ie Address [address] [place] [address] Phone Care Team Providers Care Fruit Harvester Name Role Phone Unavailable Primary Care Provider Unavailabl e Social History Tobacco Use Types Packs/Day Years Used Date Smoking Tobacco: Never Assessed Sex and Gender Information Value Date Recorded Sex Assigned at Not on file Legal Sex Male 3:20 PM CDT Gender Identity Not on file Sexual Orientation Not on file Plan of Treatment Health Maintenance Due Date Last Done Comments DTAP/TDAP/TD VACCINES (1 - Tdap) 1982 COLORECTAL SCREENING 2008 Colorectal Cancer Screening 2008 FIT-DNA Q 3 years 2008 FIT/FOBT Q 1 year 2008 Flex Sig/CT Colonography Q 5 years 2008 ZOSTER VACCINE (1 of 2) 2013 INFLUENZA VACCINE (#1) 2025 RSV VACCINE (60+ or ) (1 - 1-dose 75+ series) 2038 Insurance [facility] 16 CONSOLIDATED FEE UNIT
--- OUTSIDE RECORDS SUMMARY | 2025-04-24 16:12 | XMS_ITS | Clinical Summary ---
Author Organization [employer] [facility] Address [address] 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
[2025-04-24 16:41] LABS: Alanine Aminotransferase 17 U/L (0-41); Albumin Level 3.2 g/dL (3.5-5.2); Alkaline Phosphatase 106 U/L (40-130); Anion Gap 17.0 (5-19); Aspartate Amino Transferase 23 U/L (0-40); Blood Urea Nitrogen 27 mg/dL (8-23); Calcium 8.5 mg/dL (8.5-10.5); Carbon Dioxide 22 mmol/L (22-29); Chloride 96 mmol/L (98-107); Creatinine Clr Calc Pharmacy 60.1478; Globulin 3.6 g/dL (1.3-4.6); Glucose 90 mg/dL (65-115); Magnesium 1.7 mg/dL (1.7-2.3); Osmolality Calculated 279 mOsm/kg (285-295); Potassium 3.0 mmol/L (3.5-5.1); Sodium 132 mmol/L (136-145); Thyroid Stimulating Hormone 3.41 uIU/mL (0.27-4.20); Total Protein 6.8 g/dL (6.6-8.7)
[2025-04-24 17:00] VITALS: BP 106/56; PULSE 114; RESP 15; O2SAT 100
[2025-04-24 17:14] LABS: Glucose Urine UA Negative (Normal); Nitrate Urine Negative (Negative); Specific Gravity, Urine 1.023 (1.005-1.030)
[2025-04-24 17:17] LABS: Add Urine Microscopic? YES
[2025-04-24 17:59] VITALS: BP 96/79; PULSE 109; RESP 16; O2SAT 98
--- NOTE | 2025-04-24 18:34 | CTR_ITS ---
PROCEDURE INFORMATION: Exam: CT Chest Without Contrast; Diagnostic Exam date and time: 04/24/2025 6:45 PM Age: 60 years old Clinical indication: Other: Weight loss TECHNIQUE: Imaging protocol: Diagnostic computed tomography of the chest without contrast. Radiation optimization: All CT scans at this facility use at least one of these dose optimization techniques: automated exposure control; mA and/or kV adjustment per patient size (includes targeted exams where dose is matched to clinical indication); or iterative reconstruction. COMPARISON: CR XR chest 1V portable [id number] 04/24/2025 3:44 PM RADIATION DOSE METRICS: Total DLP (mGy-cm): 677.6 FINDINGS: Thyroid: Homogeneous thyroid. Lungs: Advanced centrilobular emphysema. Bronchial wall thickening with scattered endobronchial debris. No airspace disease. No mass lesion in either lung. Pleural spaces: No pneumothorax. No pleural effusion. Heart: Low-attenuation intra cardiac blood pool is concerning for severe anemia. Coronary arteries: Mild coronary artery calcification. Lymph nodes: No enlarged lymph nodes. Vasculature: Normal caliber thoracic aorta. Normal caliber pulmonary artery tree. Diaphragm: Small sliding hiatal hernia. Bones/joints: No acute fracture or destructive lesion. Soft tissues: Unremarkable. COMMENTS: The presence of pulmonary emphysema on CT is an independent risk factor for lung cancer. In the absence of a history or active diagnosis of lung cancer, it is recommended that this patient with emphysema be evaluated for enrollment in a low dose CT lung cancer screening program. PROCEDURE INFORMATION: Exam: CT Abdomen And Pelvis Without Contrast Exam date and time: 04/24/2025 6:45 PM Age: 60 years old Clinical indication: Other: Weight loss TECHNIQUE: Imaging protocol: Computed tomography of the abdomen and pelvis without contrast. Radiation optimization: All CT scans at this facility use at least one of these dose optimization techniques: automated exposure control; mA and/or kV adjustment per patient size (includes targeted exams where dose is matched to clinical indication); or iterative reconstruction. COMPARISON: CR XR hip RT 2-3V wo/w pel* [id number] 12/30/2018 7:15 PM RADIATION DOSE METRICS: Total DLP (mGy-cm): 677.6 FINDINGS: Liver: No visible liver mass on this noncontrast exam. Liver is hyperdense with attenuation coefficient measuring up to 72 Hounsfield units. There is a small low-attenuation focus in the medial segment left hepatic lobe (series 10, image 16) which is indeterminate. Gallbladder and biliary ducts: No high density gallstones or gallbladder inflammatory change. Pancreas: No pancreatic edema. Pancreatic mass is not excluded without intravenous contrast. Spleen: Spleen is normal in size. Adrenal glands: Normal configuration. Kidneys and ureters: No evidence of renal obstruction or significant contour deformity. Stomach and bowel: Postprandial stomach. Normal caliber small bowel. Distal colonic diverticulosis without evidence of acute diverticulitis. No bowel wall pneumatosis. No visible mass although sensitivity is limited. Appendix: Normal appendix is confirmed. Intraperitoneal space: No free air. No significant fluid collection. Vasculature: Mild to moderate aortoiliac calcific atherosclerosis without aneurysm. No significant plaque at the origin of the mesenteric vessels or renal arteries. Lymph nodes: No enlarged lymph nodes. Urinary bladder: Unremarkable as visualized. Reproductive: Physiologic appearance for age. Bones/joints: Mild fatty atrophy of skeletal muscle noted throughout. Soft tissues: No perineal/perianal abscess or inflammation. No visible skin breakdown. CT/[place] [id number] IMPRESSION: 1. Advanced centrilobular emphysema. No airspace disease or mass lesion. 2. Low-attenuation blood pool is worrisome for severe anemia. IMPRESSION: 1. No abnormality identified to explain patient's weight loss. In particular, there are no findings of malignancy, but sensitivity is limited without intravenous contrast. 2. Hyperdense liver. Differential diagnosis includes hemochromatosis as well as medication effect from amiodarone or gold. 3. Tiny indeterminate focus in the liver is new from the prior exam several years ago. If patient can tolerate intravenous contrast, consider further characterization of the liver with CT or MR.
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
[2025-04-24 18:38] VITALS: BP 107/79; PULSE 108; RESP 16; O2SAT 100
[2025-04-24 19:08] LABS: Ferritin 360 ng/mL (30-400); Iron 20 ug/dL (59-158); Total Iron Binding Capacity 139 mcg/dl; Unsaturated Iron Binding 119 ug/dL (112-347)
[2025-04-24 19:12] LABS: Alcohol Level < 10 mg/dL (0-10)
[2025-04-24 19:24] LABS: Procalcitonin 0.50 ng/mL (0-0.5); Vitamin B12 868 pg/mL (232-1245)
[2025-04-24 19:29] LABS: Lactic Sepsis W/Reflex 1.6 mmol/L (0.5-2.2)
[2025-04-24 19:30] LABS: Troponin(5th) Baseline 59 ng/L (0-15)
[2025-04-24 19:40] LABS: PCP Screen Urine Negative (Negative)
[2025-04-24 19:47] VITALS: BP 101/68; PULSE 115; O2SAT 99
[2025-04-24 20:01] VITALS: BP 82/48; PULSE 74; RESP 16; TEMP 36.7; O2SAT 93
--- NOTE | 2025-04-24 20:15 | PC.NURSE ---
This nurse contacted Dr. Marquez about patients order for rocephin. Patient has an allergy to penicillins and pharmacy asked MD to okay rocephin. Dr. Marquez said patient should be fine and to give rocephin. This nurse administered medication and will monitor patient for any adverse reactions.
--- OUTSIDE RECORDS SUMMARY | 2025-04-24 20:19 | XMS_ITS | Clinical Summary ---
Author Organization [employer] [facility] Address [address] 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
--- OUTSIDE RECORDS SUMMARY | 2025-04-24 20:19 | XMS_ITS | Clinical Summary ---
Author Organization [facility] ie Address [address] [place] [address] Phone Care Team Providers Care Fondant Cooker Name Role Phone Unavailable Primary Care Provider [...] - 1-dose 75+ series) 2038 Insurance [employer] 16 CONSOLIDATED FEE UNIT
--- NOTE | 2025-04-24 20:32 | ECG_ITS ---
[facility] Date: 2025-04-24 Pat Name: Declan Garcia Department: Room: 259 Gender: Male It Corporate Recruiter: : 1965 Requested By: Wilmer Myers Order Number: [id number] Eva MD: Melissa Joyce M.D. Measurements Intervals [place] Rate: 111 P: 72 OK: 162 QRS: 64 QRSD: 82 T: 77 QT: 349 QTc: 474 Interpretive Statements SINUS TACHYCARDIA LOW QRS VOLTAGE IN PRECORDIAL LEADS [QRS DEFLECTION < 1.0 mV IN CHEST LEADS] ABNORMAL RHYTHM ECG Compared to ECG 04/24/2025 15:42:11 Low QRS voltage now present ST (T wave) deviation no longer present Electronically Signed On 04-25-2025 00:22:34 CDT by Melissa Joyce M.D. [email or web address]
[2025-04-24 20:33] LABS: Cholesterol 107 mg/dL (0-200); HDL Cholesterol 25 mg/dL (60-100); Thyroid Stimulating Hormone 2.67 uIU/mL (0.27-4.20); Triglycerides 90 mg/dL (0-150)
[2025-04-24] MEDS: cefTRIAXone 1,000 mg SDV 1000 MG IVP (21:15)
[2025-04-24] MEDS: pantoprazole 40 mg SDV IVP (21:15)
[2025-04-24] MEDS: thiamine 100 mg/mL 2mL SDV IM (21:16)
[2025-04-24] MEDS: heparin 5,000 unit/mL INJ 1 mL 5000 UNIT SUBCUT (21:16)
[2025-04-24] MEDS: folic acid 1 MG, multivitamin inj 10 ML, thiamine 100 MG in sodium chloride 0.9% 1,000 ML 252.8 MG IV (21:16)
[2025-04-24 21:51] LABS: Troponin 5 2HR 62.44 ng/L (0-15); Troponin 5 2HR Delta 3.44 ABS# (0-10)
[2025-04-24 22:00] LABS: Estmated Average Glucose 105; Hemoglobin A1C 5.3 % (4.0-6.0)
--- NOTE | 2025-04-24 22:00 | PC.NURSE ---
Patient was assisted with a shower by Brandy Trammell. Patient told brandy and this nurse that we could just throw his clothes away because they stink so bad.
[2025-04-24 22:53] VITALS: BMI 28.8
[2025-04-25] VITALS (11 sets, daily range): BP systolic 73–108; BP diastolic 39–74; PULSE 67–101; RESP 16–19; TEMP 36.4–37.2; O2SAT 95–100
[2025-04-25 01:17] LABS: Hematocrit 23.7 % (37-53); Hemoglobin 7.80 g/dL (11.27-16.99); Mean Corpuscular HGB Conc 32.9 g/dL (30-55); Mean Corpuscular Hemoglobin 28.9 pg (27-33); Mean Corpuscular Volume 87.8 fl (82-101); Nucleated Red Blood Cells % 0 %; Platelet Count 187 10^3/cmm (157-399); Red Blood Count 2.70 10^6/uL (3.85-5.65); White Blood Count 8.77 10^3/uL (3.29-11.43)
[2025-04-25 01:39] LABS: Troponin 5 6HR 59.00 ng/L (0-15); Troponin 5 6HR Delta 0 ng/L (0-12)
[2025-04-25 01:43] LABS: Alanine Aminotransferase 13 U/L (0-41); Albumin Level 2.5 g/dL (3.5-5.2); Alkaline Phosphatase 76 U/L (40-130); Anion Gap 16.0 (5-19); Aspartate Amino Transferase 15 U/L (0-40); Blood Urea Nitrogen 26 mg/dL (8-23); Calcium 7.1 mg/dL (8.5-10.5); Carbon Dioxide 17 mmol/L (22-29); Chloride 106 mmol/L (98-107); Creatinine Clr Calc Pharmacy 58.2666; Globulin 2.1 g/dL (1.3-4.6); Glucose 105 mg/dL (65-115); Magnesium 1.6 mg/dL (1.7-2.3); Osmolality Calculated 287 mOsm/kg (285-295); Potassium 3.0 mmol/L (3.5-5.1); Sodium 136 mmol/L (136-145); Total Protein 4.6 g/dL (6.6-8.7)
[2025-04-25] MEDS: lidocaine 1% 5 ML in potassium chloride premix 100 ML 26.25 ML IV (03:06)
[2025-04-25] MEDS: dextrose 5%-sod chloride 0.9% 1,000 ML 75 ML IV ×2 (03:06→16:50)
--- NOTE | 2025-04-25 04:32 | PC.RESP ---
Patient refused EKG
--- NOTE | 2025-04-25 06:59 | PC.PHAR ---
[facility] 7am 04/25/25. Will also visit pt in his room to ask if he knows his medications, if any.
--- NOTE | 2025-04-25 08:21 | USCV_ITS ---
Declan Garcia Age: 60 Gender: M : 1965 Exam Date: 04/25/2025 10:59 Ordering Phys: Wilmer Myers MD Technologist: ABBY Exam Location: [facility] [place] Indication: nstemi BP: 90 / 52 HR: 89 Rhythm: Sinus Technical Quality: Adequate MEASUREMENTS (Male / Female) Normal Values 2D ECHO LV Diastolic Diameter PLAX 3.6 cm 4.2 - 5.9 / 3.9 - 5.3 cm IVS Diastolic Thickness 0.5 cm 0.6 - 1.0 / 0.6 - 0.9 cm IVS Systolic Thickness 1.3 cm LVPW Diastolic Thickness 0.9 cm 0.6 - 1.0 / 0.6 - 0.9 cm LVPW Systolic Thickness 1.7 cm LVOT Diameter 2.1 cm LV Ejection Fraction 2D Teich 57.2 % LV Ejection Fraction MOD 4C 45.6 % LV Ejection Fraction MOD 2C 50.2 % LV Ejection Fraction 2C AL 50.9 % LA Diameter 2.6 cm RA Systolic Volume 4C AL 28.3 ml RA Systolic Volume 4C MOD 26.6 ml LA Sys Volume AL 35.1 cm cubed LA Sys Volume Index AL 18.4 cm cubed/m squared Aorta at Sinotubular Diameter 3.1 cm IVC Diameter 1.7 cm M-MODE LA Ao Ratio MM 1.1 AV Cusp Separation MM 2.1 cm DOPPLER AV Peak Velocity 93.0 cm/s LVOT Peak Velocity 67.0 cm/s AV Area Cont Eq vti 3.5 cm squared AV Area Cont Eq pk 2.5 cm squared MV Peak Velocity 91.0 cm/s MV Area PHT 5.9 cm squared Mitral E to A Ratio 0.8 TR Peak Velocity 246.0 cm/s TR Peak Gradient 24.2 mmHg TV Peak E Velocity 58.0 cm/s PV Peak Velocity 79.0 cm/s FINDINGS Left Ventricle Normal left ventricular size, systolic function and wall thickness, with no regional wall motion abnormalities. Left ventricular ejection fraction is estimated at 60 %. Grade I/IV diastolic dysfunction (abnormal relaxation filling pattern), normal to mildly elevated filling pressures. Right Ventricle The right ventricle is normal in size and function. Right Atrium The right atrium is normal in size. Left Atrium The left atrium is normal in size. Mitral Valve Structurally normal mitral valve without significant stenosis or prolapse. There is no mitral regurgitation. Aortic Valve Mild aortic valve calcification. No aortic valve stenosis. Trace aortic valve regurgitation. Tricuspid Valve Mild tricuspid valve regurgitation. Pulmonic Valve Structurally normal pulmonic valve without significant stenosis. There is no pulmonic regurgitation. Pericardium Normal pericardium without effusion. Aorta Normal ascending aorta dimension. IVC The inferior vena cava appears normal. CONCLUSIONS Normal left ventricular size, systolic function and wall thickness, with no regional wall motion abnormalities. Left ventricular ejection fraction is estimated at 60 %. Grade I/IV diastolic dysfunction (abnormal relaxation filling pattern), normal to mildly elevated filling pressures. Mild tricuspid valve regurgitation. Mild aortic valve calcification. No aortic valve stenosis. Trace aortic valve regurgitation. There is no pericardial effusion. Right atrial pressure is around 5 mm of mercury. Lizabeth Ball MD (Electronically Signed) Final Date: 25 April 2025 13:13 S
[2025-04-25] MEDS: multivitamin therapeutic Tablet 1 TAB PO (08:23)
[2025-04-25] MEDS: potassium phosphate (mEq K) 40 MEQ in sodium chloride 0.9% (100 ml) 100 ML 27.25 MEQ IV (09:30)
--- NOTE | 2025-04-25 09:42 | PC.CHAP ---
Pastoral Care Encounter/Spiritual Assessment Type of Contact [] Declined senior care specialist visit [] Patient/Family/Request visit [] Outpatient visit [] Follow-up visit [] Physician referral [] Code/Alert [x] Routine visit [] Staff referral [] Actively dying [] Patient sleeping [] Family support [] [] Out of room [] Palliative care [] [] Receiving care in room [] Pre-surgical visit [] Trauma [] Long length of stay [] ICU visit [] Other: Relational/Emotional Strength [x] Patient feels connected with others/family/visitors/staff [] Distress [] Loneliness/isolation [] Abandonment Spirituality of Patient [x] Person of [place] [] Attends Rastafarian of their [place] [x] Believes in Prayer [] Reads Bible or Confucianism materials [] There are Spiritual issues to be addressed Balance Staff Staker Interventions [x] Prayer [x] Active listening [] Non-anxious presence [x] Spiritual/emotional support [] Crisis/trauma care [] Spiritual counseling [] Bereavement support [] Provided bereavement packet [] Provided Bible/devotional materials [] Provided toy/stuffed animal, coloring book to patient or family member [] Provided Communion [] Anointing/[place] [] Salvation [x] Completed spiritual assessment [] Other: Impact on Illness or Injury [] Angry [] Fearful [] Anxious [] Often cries [] Exhaustion [] Unable to work [] Unable to attend mandaeism [] Unable to walk/stand [] Unable to read [] Unable to drive [] Unable to eat/drink [] Unable to sleep [] Unable to be with family [] Patient intubated [] Other: Summary Time spent with patient 5 min
[2025-04-25 10:31] LABS: LAB Peripheral Smear Sent for Review
[2025-04-25 12:02] LABS: Hemoglobin 6.70 g/dL (11.27-16.99); Mean Corpuscular HGB Conc 33.3 g/dL (30-55); Mean Corpuscular Hemoglobin 29.6 pg (27-33); Mean Corpuscular Volume 88.9 fl (82-101); Nucleated Red Blood Cells % 0 %; Platelet Count 176 10^3/cmm (157-399); Red Blood Count 2.26 10^6/uL (3.85-5.65); White Blood Count 6.60 10^3/uL (3.29-11.43)
[2025-04-25 12:13] LABS: Hematocrit 20.1 % (37-53)
[2025-04-25] MEDS: albumin 25 G/100 ML BAG 60 G IV ×2 (13:20→21:36)
[2025-04-25 15:47] LABS: Bacillus cereus group Not Detected (NOT DETECT); Bacillus subtillis group Not Detected (NOT DETECT); Corynebacterium Not Detected (NOT DETECT); Cutibacterium acnes (P.acnes) Not Detected (NOT DETECT); Enterococcus faecalis Not Detected (NOT DETECT); Enterococcus faecium Not Detected (NOT DETECT); Listeria Not Detected (NOT DETECT); Micrococcus Not Detected (NOT DETECT); Pan Candida Not Detected (NOT DETECT); Pan Gram-Negative Not Detected (NOT DETECT); Staphylococcus epidermidis Not Detected (NOT DETECT); Staphylococcus lugdunensis Not Detected (NOT DETECT); Staphylococcus species Detected (NOT DETECT); Streptococcus anginosus group Not Detected (NOT DETECT); Streptococcus pyogenes Not Detected (NOT DETECT); Streptococcus species Not Detected (NOT DETECT); mecA Not Detected (NOT DETECT); mecC Not Detected (NOT DETECT)
--- NOTE | 2025-04-25 15:55 | P.PN_ITS ---
Subjective 2 Subjective: Patient was seen this morning, currently alert oriented x 3, following all commands, denies any fevers, chills, no cough, no lightheadedness, dizziness, discussed his low hemoglobin he denies ever having history of GI bleeds, requiring blood transfusions, denies ever having a EGD and colonoscopy he has no chest pain complaints, no abdominal pain complaints, denies any lightheadedness, no dizziness Vitals/I&O/Wt Last Vital Signs Temp 98.0 F 04/25/25 15:53 Pulse 100 04/25/25 15:53 Resp 19 H 04/25/25 15:53 BP 77/39 04/25/25 15:53 Pulse Ox 99 04/25/25 15:53 O2 Del Method Room Air 04/25/25 15:53 04/25/25 04/25/25 04/25/25 06:59 14:59 22:59 Intake Total 1116.2 / 3132.85 469.0909 / 469.0909 100 / 569.0909 Output Total 200 / 200 Balance 916.2 / 2932.85 469.0909 / 469.0909 100 / 569.0909 Weight last 48 hrs Weight 72.206 kg Weight 75.296 kg Weight 95.254 kg Weight 95.254 kg Physical Exam 2 Const: COMMON NORMALS: no acute distress and patient oriented x3 Resp: COMMON NORMALS: normal respiratory effort, No retractions, No use of accessory muscles and clear to auscultation bilaterally AUSCULTATION: clear to auscultation bilaterally Cardio: COMMON NORMALS: regular rate, regular rhythm, S1 normal heart sound present and S2 normal heart sound present RATE: regular rate RHYTHM: r egular rhythm HEART SOUNDS: S1 normal heart sound present and S2 normal heart sound present GI: COMMON NORMALS: Normal to inspection, nondistended, normoactive bowel sounds present and non-tender Extremity: COMMON NORMALS: no pedal edema Neuro: COMMON NORMALS: patient oriented x3, CN's II-XII intact bilaterally and moves all extremities Psych: COMMON NORMALS: mental status grossly normal Data 04/25/25 11:47 04/25/25 00:45 Micro: Microbiology 04/24/25 18:58 Blood Culture - Preliminary Blood Staphylococcus species 04/24/25 22:05 Occult Blood (FIT) - Final Stool Routine Collection 04/24/25 19:02 Blood Culture - Preliminary Blood SPECIMEN COLLECTED A&P Assessment and plan 1. Acute anemia: 2. Alcoholism: 3. Dehydration: 4. Acute kidney injury: Plan: Alcoholism, banana bag, CIWA protocol Dehydration, IV fluids, banana bag Acute kidney injury, IV fluids Urinary tract infection, continue Rocephin Weight loss, fatigue CT chest abdomen pelvis CT/[place] [id number] IMPRESSION: 1. Advanced centrilobular emphysema. No airspace disease or mass lesion. 2. Low-attenuation blood pool is worrisome for severe anemia. IMPRESSION: 1. No abnormality identified to explain patient's weight loss. In particular, there are no findings of malignancy, but sensitivity is limited without intravenous contrast. 2. Hyperdense liver. Differential diagnosis includes hemochromatosis as well as medication effect from amiodarone or gold. 3. Tiny indeterminate focus in the liver is new from the prior exam several years ago. If patient can tolerate intravenous contrast, consider further characterization of the liver with CT or MR. Acute anemia, Hemoccult positive stools, hold blood thinners, transfuse 1 unit PRBC, Protonix, Carafate Folic acid deficiency, megaloblastic anemia, folic acid Staphylococcal bacteremia - 1 out of 4 blood cultures positive - Likely contamination - Cardiac echo no valvular vegetation - Vancomycin for now - Follow repeat blood cultures Low blood pressures, likely secondary dehydration, acute anemia, lactic acid within normal limits -Mean arterial pressure around 65, blood pressure soft - Continue fluid therapy, receiving 1 unit PRBC, albumin therapy Possible sepsis related to UTI, IV fluids, IV Rocephin, blood cultures NSTEMI CONCLUSIONS Normal left ventricular size, systolic function and wall thickness, with no regional wall motion abnormalities. Left ventricular ejection fraction is estimated at 60 %. Grade I/IV diastolic dysfunction (abnormal relaxation filling pattern), normal to mildly elevated filling pressures. Mild tricuspid valve regurgitation. Mild aortic valve calcification. No aortic valve stenosis. Trace aortic valve regurgitation. There is no pericardial effusion. Right atrial pressure is around 5 mm of mercury. Full code Heparin for DVT prophylaxis Cosyntropin stimulation test, albumin, fluid therapy, blood therapy, antibiotics, replace electrolytes, Protonix, Pepcid PDMP PDMP Reviewed: Last Reviewed 04/24/25 18:02 by Wilmer Myers MD Attestations 2 Medical Necessity Statement*: Patient requires hospitalization for alcoholism, dehydration, JASON, acute anemia, UTI, NSTEMI Diagnoses Acute anemia D64.9 Alcoholism F10.20 Dehydration E86.0 Acute kidney injury N17.9 Sepsis Event Note Evaluation Initial hypotension due to sepsis/infection: SBP < 90 mmHg Persistent hypotension due to sepsis/infection: SBP < 90 mmHg Possible source: genitourinary Focused Exam Vital Signs Temp Pulse Resp BP Pulse Ox O2 Del Method 04/25/25 15:53 98.0 F 100 19 H 77/39 99 Room Air 04/25/25 10:36 98.2 F 101 H 18 88/57 98 Room Air 04/25/25 07:18 98.5 F 91 18 90/52 100 Room Air Capillary refill: > 3 Seconds Peripheral pulse strength: 2+ Slightly Diminished Peripheral pulse location: Radial Skin exam: normal turgor Date exam was performed: 04/25/25 Time exam was performed: 16:08 Problem List 1. Acute anemia: Status: Acute 2. Alcoholism: Status: Acute 3. Dehydration: Status: Acute 4. Acute kidney injury: Status: Acute
--- NOTE | 2025-04-25 16:20 | PHA.VACGOAL ---
Vancomycin Goal - Goal Vancomycin Goal:: 15-20 mg/L Vancomycin Indication:: Other - Therapy Current therapy:: Other Antibiotic (CEFTRIAXONE) Day of therpy:: Day []of [] . Actual body weight (kg): 159 lb 3 oz - Data Labs: WBC 6.60 10^3/uL (3.29-11.43) 04/25/25 11:47 RBC 2.26 10^6/uL (3.85-5.65) L 04/25/25 11:47 Hgb 6.70 g/dL (11.27-16.99) L 04/25/25 11:47 Hct 20.1 % (37-53) L* 04/25/25 11:47 MCV 88.9 fl (82-101) 04/25/25 11:47 MCH 29.6 pg (27-33) 04/25/25 11:47 MCHC 33.3 g/dL (30-55) 04/25/25 11:47 RDW 14.6 % (12.1-15.1) 04/25/25 11:47 Sodium 136 mmol/L (136-145) 04/25/25 00:45 Potassium 3.0 mmol/L (3.5-5.1) L 04/25/25 00:45 Chloride 106 mmol/L (98-107) 04/25/25 00:45 Carbon Dioxide 17 mmol/L (22-29) L 04/25/25 00:45 Anion Gap 16.0 (5-19) 04/25/25 00:45 BUN 26 mg/dL (8-23) H 04/25/25 00:45 Creatinine 1.4 mg/dL (0.7-1.2) H 04/25/25 00:45 GFR Calculation 51.4 mL/min (90-130) L 04/25/25 00:45 Last dialysis session:: N/A Treatment plan:: new consult Regimen:: LOADING DOSE OF 2000 MG X 1 MAINTENANCE DOSE OF 750 MG Q12H PER DOSING PROTOCOL Follow up:: WILL CONTINUE TO MONITOR AND FOLLOW UP DAILY
[2025-04-25] MEDS: pantoprazole 40 mg SDV IVP (16:49)
[2025-04-25] MEDS: sucralfate 1 gm/10 mL Oral Liq UDC PO ×2 (16:49→21:03)
--- NOTE | 2025-04-25 17:53 | PC.NURSE ---
talked to kee in pharmacy abt admin of cosyntropin while pt receiving blood, kee said needed to wait until after blood was done
[2025-04-25] MEDS: cefTRIAXone 1,000 mg SDV 1000 MG IVP (21:03)
[2025-04-25 22:34] LABS: Hematocrit 22.1 % (37-53); Hemoglobin 7.40 g/dL (11.27-16.99)
[2025-04-25 23:00] LABS: INR 0.98 (0.8-1.2); Prothrombin Time 13.60 SECONDS (12.1-14.9)
[2025-04-25] MEDS: cosyntropin 0.25 mg SDV IVP (23:00)
[2025-04-25 23:01] LABS: Partial Thromboplastin Time 33.8 SECONDS (23.9-36.7)
[2025-04-25 23:15] LABS: Procalcitonin 0.40 ng/mL (0-0.5)
[2025-04-25 23:17] LABS: Cosyntropin Baseline 8.13 mcg/dL
[2025-04-25 23:26] LABS: Cosyntropin 30 Minute 7.87 mcg/dL
[2025-04-25 23:28] LABS: Anion Gap 15.3 (5-19); Blood Urea Nitrogen 19 mg/dL (8-23); Calcium 7.2 mg/dL (8.5-10.5); Carbon Dioxide 17 mmol/L (22-29); Chloride 107 mmol/L (98-107); Creatinine Clr Calc Pharmacy 57.3102; Glucose 80 mg/dL (65-115); Osmolality Calculated 283 mOsm/kg (285-295); Potassium 3.3 mmol/L (3.5-5.1); Sodium 136 mmol/L (136-145)
[2025-04-26] VITALS (10 sets, daily range): BP systolic 85–124; BP diastolic 59–96; PULSE 73–87; RESP 15–18; TEMP 36.2–37.3; O2SAT 95–99
[2025-04-26 00:11] LABS: Cosyntropin 1 Hour 12.83 mcg/dL
[2025-04-26 00:24] LABS: Lactic Sepsis W/Reflex 1.3 mmol/L (0.5-2.2)
[2025-04-26 00:51] LABS: Hemoglobin 6.90 g/dL (11.27-16.99)
[2025-04-26 00:57] LABS: Hematocrit 20.7 % (37-53)
[2025-04-26] MEDS: pantoprazole 40 mg SDV IVP ×2 (03:47→16:59)
[2025-04-26] MEDS: sucralfate 1 gm/10 mL Oral Liq UDC PO ×4 (03:48→23:40)
[2025-04-26] MEDS: VANCOMYCIN ADD-Vantage 750 MG in 0.9% NaCl ADD-Vantage 250 ML 250 MG IV ×3 (03:48→17:07)
[2025-04-26] MEDS: albumin 25 G/100 ML BAG 60 G IV ×3 (05:39→21:46)
[2025-04-26] MEDS: dextrose 5%-sod chloride 0.9% 1,000 ML 75 ML IV (05:41)
[2025-04-26 06:18] LABS: Hematocrit 25.4 % (37-53); Hemoglobin 8.40 g/dL (11.27-16.99); Mean Corpuscular HGB Conc 33.1 g/dL (30-55); Mean Corpuscular Hemoglobin 28.7 pg (27-33); Mean Corpuscular Volume 86.7 fl (82-101); Nucleated Red Blood Cells % 0 %; Platelet Count 176 10^3/cmm (157-399); Red Blood Count 2.93 10^6/uL (3.85-5.65); White Blood Count 8.70 10^3/uL (3.29-11.43)
[2025-04-26 06:51] LABS: Alanine Aminotransferase 10 U/L (0-41); Albumin Level 3.1 g/dL (3.5-5.2); Alkaline Phosphatase 60 U/L (40-130); Anion Gap 16.5 (5-19); Aspartate Amino Transferase 11 U/L (0-40); Blood Urea Nitrogen 16 mg/dL (8-23); Calcium 7.6 mg/dL (8.5-10.5); Carbon Dioxide 16 mmol/L (22-29); Chloride 108 mmol/L (98-107); Creatinine Clr Calc Pharmacy 67.3739; Globulin 2.2 g/dL (1.3-4.6); Glucose 97 mg/dL (65-115); Magnesium 1.4 mg/dL (1.7-2.3); Osmolality Calculated 285 mOsm/kg (285-295); Potassium 3.5 mmol/L (3.5-5.1); Sodium 137 mmol/L (136-145); Total Protein 5.3 g/dL (6.6-8.7)
--- NOTE | 2025-04-26 08:28 | PM.CONSULT ---
Providers/Reason For Consult Consulting Physician/Specialty*: Dr. Heard general surgery Reason for Consult*: GI bleed Attending Physician: Wilmer Myers MD History of Present Illness History of Present Illness Declan Garcia is a 60 year old male whom surgery was consulted to rule out GI bleed. No melena hematochezia. Alcohol dependent. No changes in bowel habits. No weight loss. Medications/Allergies Home Medications ?Medication ?Instructions ?Recorded ?Confirmed ?Last Taken ?Type budesonide 160 mcg-glycopyr 9 2 inh inhalation BID 04/25/25 04/25/25 Unknown History mcg-formot 4.8 mcg/actuation HFA inhaler (Breztri Aerosphere) lisinopril 20 1 tab PO DAILY 04/25/25 04/25/25 Unknown History mg-hydrochlorothiazide 12.5 mg tablet Allergies Allergy/AdvReac Type Severity Reaction Status Date / Time Penicillins Allergy Severe ALGY-Hives Verified 04/24/25 20:39 Current Medications Generic Name Dose Route Start Last Admin Trade Name Freq PRN Reason Stop Dose Admin Ceftriaxone Sodium 1,000 mg 04/24/25 20:01 04/25/25 21:03 Ceftriaxone 1,000 Mg Sdv IVP 1,000 mg Q24H YANE Administration Protocol Folic Acid 2 mg 04/25/25 09:00 04/25/25 16:50 Folic Acid 1 Mg Tablet PO 2 mg BID YANE Administration Vancomycin HCl 750 mg/ Sodium 250 mls @ 250 mls/hr 04/26/25 04:30 04/26/25 04:57 Chloride IV Infused Q12H YANE Infusion Albumin Human 25 g in 100 mls @ 60 mls/hr 04/25/25 20:30 04/26/25 05:39 Albumin IV 60 mls/hr Q8H YANE Administration Midodrine 10 mg 04/25/25 16:15 04/26/25 03:48 Midodrine 5 Mg Tablet PO 10 mg Q6H YANE Administration Multivitamins Therapeutic 1 tab 04/25/25 09:00 04/25/25 08:23 Multivitamin Therapeutic Tablet PO 1 tab DAILY YANE Administration Pantoprazole Sodium 40 mg 04/25/25 16:00 04/26/25 03:47 Pantoprazole 40 Mg Sdv IVP 40 mg Q12H YANE Administration Sucralfate 1 gm 04/25/25 16:00 04/26/25 03:48 Sucralfate 1 Gm/10 Ml Oral Liq Udc PO 1 gm Q6H YANE Administration Thiamine Mononitrate 100 mg 04/25/25 09:00 04/25/25 08:22 Thiamine 100 Mg Tablet PO 100 mg DAILY YANE Administration PFSH Acute PFSH: Medical History (Updated 04/27/25 @ 08:18 by Rk Heard MD) Hypertension Social History (Updated 04/24/25 @ 18:41 by Wilmer Myers MD) Smoking and tobacco/nicotine status: never used tobacco/nicotine Alcohol intake: former Substance/Drug Use: never Vitals/I&O/Wt Last Vital Signs Temp 97.4 F L 04/26/25 04:20 Pulse 74 04/26/25 07:44 Resp 18 04/26/25 07:44 BP 118/82 04/26/25 07:44 Pulse Ox 98 04/26/25 07:44 O2 Del Method Room Air 04/26/25 07:44 04/25/25 04/26/25 04/26/25 22:59 06:59 14:59 Intake Total 2210 / 2679.0909 1663.75 / 4342.8409 Output Total 400 / 400 400 / 800 Balance 1810 / 2279.0909 1263.75 / 3542.8409 Weight last 48 hrs Weight 162 lb 5 oz Weight 159 lb 3 oz Weight 166 lb Weight 210 lb Weight 210 lb Physical Exam Narrative: Chest: Unlabored breathing room air. No lymphadenopathy. Heart: Regular rate and rhythm. Abdomen: Soft, nontender, nondistended. No masses or lymphadenopathy. Data 04/27/25 04:15 04/27/25 04:15 Micro: Microbiology 04/25/25 23:15 Blood Culture - Preliminary Blood SPECIMEN COLLECTED 04/25/25 22:15 Blood Culture - Preliminary Blood SPECIMEN COLLECTED 04/24/25 19:02 Blood Culture - Preliminary Blood NEGATIVE TO DATE 04/24/25 18:58 Blood Culture - Preliminary Blood Staphylococcus species A&P Assessment and plan 1. GIB (gastrointestinal bleeding): Plan: 60-year-old male whom surgery was consulted to rule out GI bleed. I have explained the risks and benefits of a diagnostic EGD with biopsy and the patient agrees to proceed. I have explained the risks and benefits of a diagnostic colonoscopy and the patient agrees to proceed. PDMP PDMP Reviewed: Not Reviewed Coding Level of Care Code 13250 Diagnoses GIB (gastrointestinal bleeding) K92.2
[2025-04-26] MEDS: multivitamin therapeutic Tablet 1 TAB PO (09:13)
--- NOTE | 2025-04-26 09:20 | PM.MISC ---
Miscellaneous Note Note: Full consult note to follow Consulted to rule out GIB. No melena/hematochezia. Plan for EGD/colonoscopy 04/27. Prep ordered
[2025-04-26 12:13] LABS: Hematocrit 26.1 % (37-53); Hemoglobin 8.80 g/dL (11.27-16.99)
--- NOTE | 2025-04-26 13:15 | P.PN_ITS ---
Subjective 2 Subjective: Patient was seen this morning, currently alert oriented x 3, following all commands, denies any fevers, chills, cough, nausea, vomiting, denies any blood in stools, we discussed his anemia with plans for EGD and colonoscopy, he is in agreement, Vitals/I&O/Wt Last Vital Signs Temp 97.9 F 04/26/25 11:20 Pulse 80 04/26/25 11:20 Resp 15 04/26/25 11:20 BP 123/79 04/26/25 11:20 Pulse Ox 95 04/26/25 11:20 O2 Del Method Room Air 04/26/25 11:20 04/25/25 04/26/25 04/26/25 22:59 06:59 14:59 Intake Total 2210 / 2679.0909 1663.75 / 4342.8409 240 / 240 Output Total 400 / 400 400 / 800 Balance 1810 / 2279.0909 1263.75 / 3542.8409 240 / 240 Weight last 48 hrs Weight 73.624 kg Weight 72.206 kg Weight 75.296 kg Weight 95.254 kg Weight 95.254 kg Physical Exam 2 Const: COMMON NORMALS: no acute distress and patient oriented x3 HENMT: COMMON NORMALS: normocephalic HEAD & SCALP: normocephalic Resp: COMMON NORMALS: normal respiratory effort, No retractions, No use of accessory muscles and clear to auscultation bilaterally AUSCULTATION: clear to auscultation bilaterally Cardio: COMMON NORMALS: regular rate, regular rhythm, S1 normal heart sound present and S2 normal heart sound present RATE: regular rate RHYTHM: r egular rhythm HEART SOUNDS: S1 normal heart sound present and S2 normal heart sound present GI: COMMON NORMALS: Normal to inspection, nondistended, normoactive bowel sounds present and non-tender Extremity: COMMON NORMALS: no pedal edema Neuro: COMMON NORMALS: patient oriented x3 Psych: COMMON NORMALS: mental status grossly normal Data 04/26/25 12:03 04/26/25 06:11 Micro: Microbiology 04/24/25 18:58 Blood Culture - Preliminary Blood Coagulase negativ staphylococc 04/25/25 23:15 Blood Culture - Preliminary Blood SPECIMEN COLLECTED 04/25/25 22:15 Blood Culture - Preliminary Blood SPECIMEN COLLECTED 04/24/25 19:02 Blood Culture - Preliminary Blood NEGATIVE TO DATE A&P Assessment and plan 1. Acute anemia: 2. Alcoholism: 3. Dehydration: 4. Acute kidney injury: 5. Adrenal insufficiency: Plan: Alcoholism, banana bag, CIWA protocol Dehydration, IV fluids, banana bag Acute kidney injury, IV fluids Urinary tract infection, continue Rocephin Weight loss, fatigue CT chest abdomen pelvis CT/[place] [id number] IMPRESSION: 1. Advanced centrilobular emphysema. No airspace disease or mass lesion. 2. Low-attenuation blood pool is worrisome for severe anemia. IMPRESSION: 1. No abnormality identified to explain patient's weight loss. In particular, there are no findings of malignancy, but sensitivity is limited without intravenous contrast. 2. Hyperdense liver. Differential diagnosis includes hemochromatosis as well as medication effect from amiodarone or gold. 3. Tiny indeterminate focus in the liver is new from the prior exam several years ago. If patient can tolerate intravenous contrast, consider further characterization of the liver with CT or MR. 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, [place]'s disease -Given patient's soft blood pressures, - Random cortisol 8.33 - Cortisol response 60 minutes 12.83 - Start desmopressin, and hydrocortisone Acute anemia, Hemoccult positive stools, hold blood thinners, status post 2 units PRBC, Protonix, Carafate, monitor hemoglobin, general surgery consulted for EGD and colonoscopy Folic acid deficiency, megaloblastic anemia, folic acid Staphylococcal bacteremia - 1 out of 4 blood cultures positive - Likely contamination - Cardiac echo no valvular vegetation - Vancomycin for now - Follow repeat blood cultures Low blood pressures, likely secondary dehydration, acute anemia, lactic acid within normal limits, concerns for adrenal insufficiency -Mean arterial pressure around 65, blood pressure soft - Continue fluid therapy, received 2 units PRBC unit PRBC, albumin therapy Possible sepsis related to UTI, IV fluids, IV Rocephin, blood cultures NSTEMI CONCLUSIONS Normal left ventricular size, systolic function and wall thickness, with no regional wall motion abnormalities. Left ventricular ejection fraction is estimated at 60 %. Grade I/IV diastolic dysfunction (abnormal relaxation filling pattern), normal to mildly elevated filling pressures. Mild tricuspid valve regurgitation. Mild aortic valve calcification. No aortic valve stenosis. Trace aortic valve regurgitation. There is no pericardial effusion. Right atrial pressure is around 5 mm of mercury. Full code Heparin for DVT prophylaxis Replace electrolytes, IV fluids, monitor clinically, plan on EGD and colonoscopy tomorrow PDMP PDMP Reviewed: Last Reviewed 04/24/25 18:02 by Wilmer Myers MD Attestations 2 Medical Necessity Statement*: Patient required hospitalization for acute anemia, adrenal insufficiency weight loss, fatigue, NSTEMI Diagnoses Acute anemia D64.9 Alcoholism F10.20 Dehydration E86.0 Acute kidney injury N17.9 Adrenal insufficiency E27.40
[2025-04-26] MEDS: magnesium citrate Btl 296 mL 150 ML PO ×2 (13:29→20:53)
[2025-04-26] MEDS: cefTRIAXone 1,000 mg SDV 1000 MG IVP (20:52)
[2025-04-26 21:57] LABS: Hematocrit 24.2 % (37-53); Hemoglobin 8.20 g/dL (11.27-16.99)
[2025-04-27] VITALS (16 sets, daily range): BP systolic 93–142; BP diastolic 69–100; PULSE 0–115; RESP 13–19; TEMP 36.1–37.2; O2SAT 97–100
[2025-04-27 04:29] LABS: Hematocrit 24.3 % (37-53); Hemoglobin 8.30 g/dL (11.27-16.99); Mean Corpuscular HGB Conc 34.2 g/dL (30-55); Mean Corpuscular Hemoglobin 29.3 pg (27-33); Mean Corpuscular Volume 85.9 fl (82-101); Nucleated Red Blood Cells % 0 %; Platelet Count 181 10^3/cmm (157-399); Red Blood Count 2.83 10^6/uL (3.85-5.65); White Blood Count 9.53 10^3/uL (3.29-11.43)
[2025-04-27] MEDS: albumin 25 G/100 ML BAG 60 G IV (04:42)
[2025-04-27] MEDS: sucralfate 1 gm/10 mL Oral Liq UDC PO ×3 (04:44→16:58)
[2025-04-27] MEDS: pantoprazole 40 mg SDV IVP ×2 (04:44→17:00)
[2025-04-27 04:48] LABS: Alanine Aminotransferase 10 U/L (0-41); Albumin Level 3.2 g/dL (3.5-5.2); Alkaline Phosphatase 57 U/L (40-130); Anion Gap 16.0 (5-19); Aspartate Amino Transferase 13 U/L (0-40); Blood Urea Nitrogen 14 mg/dL (8-23); Calcium 7.8 mg/dL (8.5-10.5); Carbon Dioxide 18 mmol/L (22-29); Chloride 106 mmol/L (98-107); Creatinine Clr Calc Pharmacy 73.4988; Globulin 2.2 g/dL (1.3-4.6); Glucose 106 mg/dL (65-115); Magnesium 1.4 mg/dL (1.7-2.3); Osmolality Calculated 285 mOsm/kg (285-295); Potassium 3.0 mmol/L (3.5-5.1); Sodium 137 mmol/L (136-145); Total Protein 5.4 g/dL (6.6-8.7)
[2025-04-27] MEDS: VANCOMYCIN ADD-Vantage 750 MG in 0.9% NaCl ADD-Vantage 250 ML 250 MG IV ×2 (04:48→18:00)
--- NOTE | 2025-04-27 06:29 | PC.NURSE ---
This nurse contacted Dr. Heard this to advise him that patients bowel movements are still brown and thick. Dr. Heard said he will come talk to patient this am.
--- NOTE | 2025-04-27 07:50 | P.ANESASSM_ITS ---
Pre-Anesthetic Assessment Height/Weight: Height 1.82 m Weight 73.482 kg Temp Pulse Resp BP Pulse Ox O2 Del Method 99.0 F 80 17 111/75 98 Room Air 04/27/25 05:51 04/27/25 05:51 04/27/25 05:51 04/27/25 05:51 04/27/25 05:51 04/26/25 11:20 Preop Diagnosis: anemia Operation Date: 04/27/25 08:00 Proposed Procedures p EGD(Not Applicable) - Rk Heard MD s Colonoscopy(Not Applicable) - Rk Heard MD Familial anesthetic complications: none Was Beta Brooke taken within 24 hours: N/A Was Clonidine taken within 24 hours: N/A Last intake: solids: 04/26, liquids: 04/27 drink of water at midnight Social Alcohol (states he quit drinking 2 months ago. previously used alcohol daily ) and Tobacco (quit smoking 2 months ago- previously smoked 2ppd x 50 years ) Exam alert, oriented x 3 and clear to auscultation bilaterally Airway Mallampati: Class II History/ROS No significant history except as noted Pulmonary Chronic Obstructive Pulmonary Disease (uses inhaler ), Exertional Dyspnea and Sleep Apnea (has CPAP but it quit working ) CV/HEM Anemia and Hypertension JASON Hepatic None reported GI None reported Metabolic concern for adrenal insufficiency- started on desmopressin and hydrocortisone [facility] [place] None reported Neuropsych None reported Anesthetic Plan ASA status: 3 Anesthesia: Anesthesia Evaluation and MAC Medications/Allergies Home Medications ?Medication ?Instructions ?Recorded ?Confirmed ?Last Taken ?Type budesonide 160 mcg-glycopyr 9 2 inh inhalation BID 04/25/25 Unknown History mcg-formot 4.8 mcg/actuation HFA inhaler (Breztri Aerosphere) lisinopril 20 1 tab PO DAILY 04/25/2504/10 Unknown History mg-hydrochlorothiazide 12.5 mg tablet Allergies Allergy/AdvReac Type Severity Reaction Status Date / Time Penicillins Allergy Severe ALGY-Hives Verified 04/24/25 20:39 Current Medications Generic Name Dose Route Start Last Admin Trade Name Freq PRN Reason Stop Dose Admin Ceftriaxone Sodium 1,000 mg 04/24/25 20:01 04/26/25 20:52 Ceftriaxone 1,000 Mg Sdv IVP 1,000 mg On Hold: 04/27/25 07:43 Q24H YANE Administration Comment: Order held by Process Protocol Transfer Fludrocortisone Acetate 0.1 mg 04/26/25 09:00 04/26/25 09:13 Fludrocortisone 0.1 Mg Tablet PO 0.1 mg On Hold: 04/27/25 07:43 DAILY YANE Administration Comment: Order held by Process Transfer Folic Acid 2 mg 04/25/25 09:00 04/26/25 16:59 Folic Acid 1 Mg Tablet PO 2 mg On Hold: 04/27/25 07:43 BID YANE Administration Comment: Order held by Process Transfer Hydrocortisone 10 mg 04/26/25 09:00 04/26/25 09:14 Hydrocortisone 10 Mg Tablet PO 10 mg On Hold: 04/27/25 07:43 DAILY YANE Administration Comment: Order held by Process Transfer Hydrocortisone 5 mg 04/26/25 12:00 04/26/25 13:47 Hydrocortisone 10 Mg Tablet PO 5 mg On Hold: 04/27/25 07:43 1200 YANE Administration Comment: Order held by Process Transfer Hydrocortisone 5 mg 04/26/25 16:00 04/26/25 16:59 Hydrocortisone 10 Mg Tablet PO 5 mg On Hold: 04/27/25 07:43 Q24H YANE Administration Comment: Order held by Process Transfer Vancomycin HCl 750 mg/ Sodium 250 mls @ 250 mls/hr 04/26/25 04:30 04/27/25 06:41 Chloride IV Infused On Hold: 04/27/25 07:43 Q12H YANE Infusion Comment: Order held by Process Transfer Albumin Human 25 g in 100 mls @ 60 mls/hr 04/25/25 20:30 04/27/25 06:04 Albumin IV Infused On Hold: 04/27/25 07:43 Q8H YANE Infusion Comment: Order held by Process Transfer Magnesium Lactate 84 mg 04/26/25 09:00 04/26/25 16:59 Magnesium Lactate 84 Mg Tablet PO 84 mg On Hold: 04/27/25 07:43 BID YANE Administration Comment: Order held by Process Transfer Midodrine 10 mg 04/25/25 16:15 04/27/25 04:45 Midodrine 5 Mg Tablet PO 10 mg On Hold: 04/27/25 07:43 Q6H YANE Administration Comment: Order held by Process Transfer Multivitamins Therapeutic 1 tab 04/25/25 09:00 04/26/25 09:13 Multivitamin Therapeutic Tablet PO 1 tab On Hold: 04/27/25 07:43 DAILY YANE Administration Comment: Order held by Process Transfer Pantoprazole Sodium 40 mg 04/25/25 16:00 04/27/25 04:44 Pantoprazole 40 Mg Sdv IVP 40 mg On Hold: 04/27/25 07:43 Q12H YANE Administration Comment: Order held by Process Transfer Potassium Phosphate 250 mg 04/26/25 09:00 04/26/25 17:00 Phosphorus 250 Mg Tablet PO 250 mg On Hold: 04/27/25 07:43 BID YANE Administration Comment: Order held by Process Transfer Sucralfate 1 gm 04/25/25 16:00 04/27/25 04:44 Sucralfate 1 Gm/10 Ml Oral Liq Udc PO 1 gm On Hold: 04/27/25 07:43 Q6H YANE Administration Comment: Order held by Process Transfer Thiamine Mononitrate 100 mg 04/25/25 09:00 04/26/25 09:13 Thiamine 100 Mg Tablet PO 100 mg On Hold: 04/27/25 07:43 DAILY YANE Administration Comment: Order held by Process Transfer [facility] Anesthesia Medical History (Updated 04/26/25 @ 13:15 by Wilmer Myers MD) Hypertension Social History (Updated 04/24/25 @ 18:41 by Wilmer Myers MD) Smoking and tobacco/nicotine status: never used tobacco/nicotine Alcohol intake: former Substance/Drug Use: never Data Anesthesia 04/27/25 04:15 04/27/25 04:15 Short CBC 04/25/25 04/25/25 04/26/25 Range/Units 11:47 22:15 00:42 WBC 6.60 (3.29-11.43) 10^3/uL Hgb 6.70 L 7.40 L 6.90 L (11.27-16.99) g/dL Hct 20.1 L* 22.1 L 20.7 L* (37-53) % MCV 88.9 (82-101) fl Plt Count 176 (157-399) 10^3/cmm Neut % (Auto) 67.2 % Neut # (Auto) 4.44 (1.8-7.7) 10^3/uL 04/26/25 04/26/25 04/26/25 Range/Units 06:11 12:03 21:40 WBC 8.70 (3.29-11.43) 10^3/uL Hgb 8.40 L 8.80 L 8.20 L (11.27-16.99) g/dL Hct 25.4 L 26.1 L 24.2 L (37-53) % MCV 86.7 (82-101) fl Plt Count 176 (157-399) 10^3/cmm Neut % (Auto) 78.1 % Neut # (Auto) 6.79 (1.8-7.7) 10^3/uL 04/27/25 Range/Units 04:15 WBC 9.53 (3.29-11.43) 10^3/uL Hgb 8.30 L (11.27-16.99) g/dL Hct 24.3 L (37-53) % MCV 85.9 (82-101) fl Plt Count 181 (157-399) 10^3/cmm Neut % (Auto) 72.8 % Neut # (Auto) 6.93 (1.8-7.7) 10^3/uL BMP 04/25/25 04/26/25 04/27/25 22:15 06:11 04:15 Sodium 136 137 137 Potassium 3.3 L 3.5 3.0 L Chloride 107 108 H 106 Carbon Dioxide 17 L 16 L 18 L BUN 19 16 14 Creatinine 1.4 H 1.2 1.1 Glucose 80 97 106 Calcium 7.2 L 7.6 L 7.8 L Liver Function 04/26/25 04/27/25 Range/Units 06:11 04:15 Total Bilirubin 1.2 0.8 (0.15-1.2) mg/dL AST 11 13 (0-40) U/L ALT 10 10 (0-41) U/L Alkaline Phosphatase 60 57 (40-130) U/L Albumin 3.1 L 3.2 L (3.5-5.2) g/dL Blood Bank 04/25/25 13:55 Blood Type O Negative Rho(D) Type Rh negative Antibody Screen Negative Coags 04/25/25 22:15 PT 13.60 INR 0.98 APTT 33.8 C-Reactive Protein 34.1 H Microbiology 04/25/25 23:15 Blood Culture - Preliminary Blood NEGATIVE TO DATE 04/25/25 22:15 Blood Culture - Preliminary Blood NEGATIVE TO DATE 04/24/25 18:58 Blood Culture - Preliminary Blood Coagulase negativ staphylococc Cardiac Studies: 2 Echocardiogram 04/25/25
--- NOTE | 2025-04-27 08:17 | P.PN_ITS ---
Subjective 2 Subjective: no melena hematochezia Vitals/I&O/Wt Last Vital Signs Temp 97.5 F L 04/27/25 07:40 Pulse 69 04/27/25 07:40 Resp 16 04/27/25 07:40 BP 142/98 04/27/25 07:40 Pulse Ox 98 04/27/25 07:40 O2 Del Method Room Air 04/27/25 07:40 04/26/25 04/27/25 04/27/25 22:59 06:59 14:59 Intake Total 1326.667 / 1666.667 700.000 / 2366.667 Output Total 360 / 360 Balance 1326.667 / 1666.667 340.000 / 2006.667 Weight last 48 hrs Weight 162 lb Weight 162 lb 5 oz Physical Exam 2 Narrative: rrr unlabored breathing ra abdomen soft, nt, nd Data 04/27/25 04:15 04/27/25 04:15 Micro: Microbiology 04/25/25 23:15 Blood Culture - Preliminary Blood NEGATIVE TO DATE 04/25/25 22:15 Blood Culture - Preliminary Blood NEGATIVE TO DATE 04/24/25 18:58 Blood Culture - Preliminary Blood Coagulase negativ staphylococc A&P Assessment and plan 1. GIB (gastrointestinal bleeding): Plan: 60 yo male whom surgery was consulted to r/o GIB. Discussed risks and benefits and patient agreed to proceed with EGD and colonoscopy PDMP PDMP Reviewed: Not Reviewed Attestations 2 Medical Necessity Statement*: NA Coding Level of Care Code 73626 Diagnoses GIB (gastrointestinal bleeding) K92.2
--- NOTE | 2025-04-27 09:00 | PC.NURSE ---
patient awake and talking
--- NOTE | 2025-04-27 09:10 | ANE.PACU2 ---
Inpatient post-anesthesia follow up: Airway intact: Yes Vital signs: Temperature 97.6 F Pulse Rate 71 Respiratory Rate 16 Blood Pressure 138/97 Pulse Oximetry 98 Oxygen Delivery Me thod Room Air Oxygen Flow Rate 8 Fraction of Inspir ed Oxygen Hydration adequate: Yes Nausea and vomiting: No Pain level: 1 Mental status: Baseline
[2025-04-27] MEDS: potassium phosphate (mEq K) 40 MEQ in sodium chloride 0.9% (100 ml) 100 ML 27.25 MEQ IV (09:13)
[2025-04-27] MEDS: morphine 4 mg/mL SDV 1 mL 1 MG IVP (11:22)
--- NOTE | 2025-04-27 14:13 | XR_ITS ---
WS: [id number] XR chest 1V portable [id number] REASON FOR EXAM: respiratory distress FINDINGS: Compared to the examination of 04/24/2025, there are reticular interstitial lung opacities and groundglass density in both lower lung long. Due to the rapidity of the development of this abnormality pulmonary edema would be considered. The chest is otherwise unchanged compared to the previous examination. XR/XR chest 1V portable [id number] IMPRESSION: Interval development of interstitial and groundglass opacities in both lower [place] ngs as above.
[2025-04-27] MEDS: FUROsemide 10 mg/mL SDV 4mL 40 MG IVP (14:25)
--- NOTE | 2025-04-27 14:31 | XR_ITS ---
WS: [id number] XR KUB portable [id number] REASON FOR EXAM: sob FINDINGS: Very limited exam due to patient's mental status. Bowel gas pattern is nonspecific with nondistended gas-filled segments of small bowel. Nondistended colon. No mass or organomegaly is identified. Grossly no free air or retroperitoneal air. Lumbar spine and bony pelvis appear intact. XR/XR KUB portable [id number] IMPRESSION: Very limited examination with no acute abnormality identified.
--- NOTE | 2025-04-27 14:31 | P.PN_ITS ---
Subjective 2 Subjective: Patient was seen this morning, he is on room air, status post EGD colonoscopy, discussed findings, with outpatient follow-up with general surgery, he does report that he lives at home by himself, he does not have air conditioning in the home, -This afternoon patient will was up to t he chair with nursing staff, checking orthostatic vitals in which he became short of breath - Patient was examined, he is on 2 L, he is resting comfortably, does report shortness of breath, does report anxiety, has good breath sounds bilaterally, discussed the possibility of fluid overload we will give him Lasix, chest x-ray KUB ordered will monitor his respiratory status closely, he is in agreement he is able to speak full sentences no evidence of respiratory distress no nasal flaring no intercostal retractions no suprasternal retractions, Vitals/I&O/Wt Last Vital Signs Temp 97.4 F L 04/27/25 13:42 Pulse 78 04/27/25 13:42 Resp 17 04/27/25 13:42 BP 133/91 04/27/25 13:42 Pulse Ox 97 04/27/25 13:42 O2 Del Method Room Air 04/27/25 09:08 O2 Flow Rate 8 04/27/25 08:57 04/26/25 04/27/25 04/27/25 22:59 06:59 14:59 Intake Total 1326.667 / 1666.667 700.000 / 2366.927 545.1007 / 809.0909 Output Total 360 / 360 300 / 300 Balance 1326.667 / 1666.667 340.000 / 2006.964 438.0879 / 509.0909 Weight last 48 hrs Weight 73.482 kg Weight 73.624 kg Physical Exam 2 Const: COMMON NORMALS: no acute distress and patient oriented x3 Resp: COMMON NORMALS: normal respiratory effort, No retractions and No use of accessory muscles AUSCULTATION: crackles OTHER: Scattered crackles seen Cardio: COMMON NORMALS: regular rate, regular rhythm, S1 normal heart sound present and S2 normal heart sound present RATE: regular rate RHYTHM: r egular rhythm HEART SOUNDS: S1 normal heart sound present and S2 normal heart sound present GI: COMMON NORMALS: Normal to inspection, nondistended, normoactive bowel sounds present, Soft to palpation, non-tender, No hepatosplenomegaly present, no masses and no bruits PALPATION: Yes Soft to palpation and Yes No hepatosplenomegaly present Extremity: COMMON NORMALS: capillary refill normal, no clubbing, cyanosis or edema, no calf tenderness and no pedal edema Neuro: COMMON NORMALS: patient oriented x3 Psych: COMMON NORMALS: mental status grossly normal Data 04/27/25 04:15 04/27/25 04:15 Micro: Microbiology 04/25/25 23:15 Blood Culture - Preliminary Blood NEGATIVE TO DATE 04/25/25 22:15 Blood Culture - Preliminary Blood NEGATIVE TO DATE 04/24/25 18:58 Blood Culture - Preliminary Blood Coagulase negativ staphylococc A&P Assessment and plan 1. Acute anemia: 2. Alcoholism: 3. Dehydration: 4. Acute kidney injury: 5. Adrenal insufficiency: Plan: Acute hypoxic respiratory failure on 2 L - Likely secondary fluid overload - Will give 1 dose IV Lasix - Chest x-ray, KUB - Monitor respiratory status closely - ABG, respiratory therapy eval Alcoholism, banana bag, CIWA protocol Dehydration, IV fluids, banana bag, IV fluids completed Acute kidney injury, IV fluids, IV fluids completed Urinary tract infection, continue Rocephin Weight loss, fatigue CT chest abdomen pelvis CT/[place] [id number] IMPRESSION: 1. Advanced centrilobular emphysema. No airspace disease or mass lesion. 2. Low-attenuation blood pool is worrisome for severe anemia. IMPRESSION: 1. No abnormality identified to explain patient's weight loss. In particular, there are no findings of malignancy, but sensitivity is limited without intravenous contrast. 2. Hyperdense liver. Differential diagnosis includes hemochromatosis as well as medication effect from amiodarone or gold. 3. Tiny indeterminate focus in the liver is new from the prior exam several years ago. If patient can tolerate intravenous contrast, consider further characterization of the liver with CT or MR. 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, Piute's disease -Given patient's soft blood pressures, - Random cortisol 8.33 - Cortisol response 60 minutes 12.83 - t desmopressin, and hydrocortisone Acute anemia, hemoglobin 8.3, Hemoccult positive stools, hold blood thinners, status post 2 units PRBC, Protonix, Carafate, monitor hemoglobin, general surgery consulted for EGD and colonoscopy - Colonoscopy, moderate patchy inflammation in the distal sigmoid colon, colitis, rec, moderate patchy inflammation - EGD gastritis Folic acid deficiency, megaloblastic anemia, folic acid Staphylococcal bacteremia - 1 out of 4 blood cultures positive - Likely contamination - Cardiac echo no valvular vegetation - Vancomycin for now - Follow repeat blood cultures Low blood pressures, orthostatic positive, likely secondary dehydration, acute anemia, lactic acid within normal limits, concerns for adrenal insufficiency -Mean arterial pressure around 65, blood pressure soft - Continue fluid therapy, received 2 units PRBC unit PRBC, albumin therapy - Monitor orthostatic vitals Possible sepsis related to UTI, IV fluids, IV Rocephin, blood cultures so far negative NSTEMI CONCLUSIONS Normal left ventricular size, systolic function and wall thickness, with no regional wall motion abnormalities. Left ventricular ejection fraction is estimated at 60 %. Grade I/IV diastolic dysfunction (abnormal relaxation filling pattern), normal to mildly elevated filling pressures. Mild tricuspid valve regurgitation. Mild aortic valve calcification. No aortic valve stenosis. Trace aortic valve regurgitation. There is no pericardial effusion. Right atrial pressure is around 5 mm of mercury. Full code Heparin for DVT prophylaxis Plan for today, respiratory failure, IV Lasix, PDMP PDMP Reviewed: Last Reviewed 04/24/25 18:02 by Wilmer Myers MD Attestations 2 Medical Necessity Statement*: Patient requires hospitalization for acute hypoxic respiratory failure concerns for fluid overload, IV diuresis Diagnoses Acute anemia D64.9 Alcoholism F10.20 Dehydration E86.0 Acute kidney injury N17.9 Adrenal insufficiency E27.40
--- NOTE | 2025-04-27 15:04 | CTR_ITS ---
PROCEDURE INFORMATION: Exam: CTA Chest With Contrast Exam date and time: 04/27/2025 3:28 PM Age: 60 years old Clinical indication: Shortness of breath; Additional info: SOB TECHNIQUE: Imaging protocol: Computed tomographic angiography of the chest with contrast. Exam focused on the arteries. 3D rendering (Not supervised by radiologist): MIP and/or 3D reconstructed images were created by the technologist. Radiation optimization: All CT scans at this facility use at least one of these dose optimization techniques: automated exposure control; mA and/or kV adjustment per patient size (includes targeted exams where dose is matched to clinical indication); or iterative reconstruction. Contrast material: OMNI 350; Contrast volume: 75 ml; Contrast route: INTRAVENOUS (IV); COMPARISON: [place] [id number] 04/24/2025 6:45 PM RADIATION DOSE METRICS: Total DLP (mGy-cm): 347.99 FINDINGS: Pulmonary arteries: Respiratory motion artifact limits assessment of subsegmental arteries. Segmental, lobar and main pulmonary arteries are patent. Aorta: Aortic caliber is normal and is no aortic dissection. Lungs: The lungs demonstrate marked upper lobe bullous changes. Mild atelectasis posteriorly in the right lower lobe. Pleural spaces: Yqes-hz-rofuzumo dependent pleural effusions bilaterally. No pneumothorax. Heart: Cardiac chamber size is normal. Coronary arteries: Mild coronary artery calcification is present. Lymph nodes: Infrahilar lymph nodes measuring up to 1 cm in short axis are present bilaterally. No mediastinal praveen enlargement. Small amount of pericardial fluid in the aortopulmonary window. Diaphragm: Small hiatal hernia. Intraperitoneal space: Mild perihepatic ascites. Mild strand-like density is present in the left subdiaphragmatic, which could represent edema or other processes. Bones/joints: Unchanged central inferior endplate depression at T9. Subacute lateral right 7th rib fracture. Other healed bilateral rib fractures noted. Soft tissues: Unremarkable. CT/CT angio chest PE protcl [id number] IMPRESSION: 1. Suboptimal assessment of subsegmental pulmonary arteries due to respiratory motion. There is otherwise no evidence for pulmonary embolism. 2. Zjpu-yh-qdwsefhv bilateral pleural effusions. 3. Bullous disease consistent with COPD. 4. Ascites. 5. Incompletely healed right 7th rib fracture
--- NOTE | 2025-04-27 15:04 | USR_ITS ---
PROCEDURE INFORMATION: Exam: US Duplex Lower Extremity Veins, Bilateral Exam date and time: 04/27/2025 5:35 PM Age: 60 years old Clinical indication: Swelling (edema) of limb; Lower extremity, bilateral TECHNIQUE: Imaging protocol: Real-time duplex ultrasound of the bilateral extremities with 2-D reeder scale, color Doppler flow and spectral waveform analysis including responses to compression and other maneuvers (when performed) with image documentation. Complete exam focused on the lower extremity veins. COMPARISON: No relevant prior studies available. FINDINGS: Right deep veins: Unremarkable. The common femoral, superficial femoral, proximal profunda femoral and popliteal veins are patent without thrombus. Normal Doppler waveforms. Normal compressibility and/or augmentation response. Left deep veins: Unremarkable. The common femoral, superficial femoral, proximal profunda femoral and popliteal veins are patent without thrombus. Normal Doppler waveforms. Normal compressibility and/or augmentation response. Superficial veins: Greater saphenous veins at the saphenofemoral junctions are patent bilaterally without thrombus. Soft tissues: Unremarkable. US/CV venous duplex [facility] [id number] IMPRESSION: No evidence of deep vein thrombosis of either lower extremity.
[2025-04-27 15:06] LABS: ABG PCO2 27.3 mmHg (35-45); ABG PH Result 7.38 (7.35-7.45); Alveolar-Arterial Oxygen Gradi 6.7 mmHg (5-10); Arterial Blood Gas Hematocrit 32.9 % (42-52); Blood Gas Allen Test Pos; Blood Gas LPM 2.0 %; Blood Gas Operator Identificat glc; Blood Gas Sample Site Radial, right; Blood Gas Sample Type Arterial; Carboxyhemoglobin 1.1 %THgb (0.4-20.1); Glucose Level-ABG 112.0 mg/dL (70-115); HCO3 ABG 16.3 mmol/L (22-26); Ionized Calcium Level - ABG 1.1 mmol/L (1.1-1.4); Methemoglobin 0.4 % (0.4-1.5); Oxygen Saturation ABG 99.0; PO2 ABG 112.0 mmHg (80.0-100.0); PO2 FiO2 Ratio Arterial Blood 400; Potassium Level - ABG 3.4 mmol/L (3.5-5.0); Sodium Level - ABG 138.0 mmol/L (131-143)
[2025-04-27] MEDS: iohexol 350 mg/mL 500 mL Btl (per mL) IV (15:34)
[2025-04-27 17:18] LABS: NT Pro B Type Natriuretic Pept 11096 pg/mL (0-125)
--- NOTE | 2025-04-27 17:48 | PC.OT ---
Hold OT treatment per nursing staff; will attempt again at later time.
[2025-04-28 01:02] VITALS: BP 110/82; BP 113/81; BP 121/83; PULSE 100; PULSE 106; PULSE 114
[2025-04-28 01:09] VITALS: BP 110/82; BP 113/81; BP 121/83; PULSE 100; PULSE 106; PULSE 114
[2025-04-28] MEDS: cefTRIAXone 1,000 mg SDV 1000 MG IVP ×2 (01:23→20:21)
[2025-04-28] MEDS: VANCOMYCIN ADD-Vantage 750 MG in 0.9% NaCl ADD-Vantage 250 ML 250 MG IV ×2 (06:29→16:47)
[2025-04-28 07:20] LABS: Hematocrit 24.6 % (37-53); Hemoglobin 8.20 g/dL (11.27-16.99); Mean Corpuscular HGB Conc 33.3 g/dL (30-55); Mean Corpuscular Hemoglobin 29.3 pg (27-33); Mean Corpuscular Volume 87.9 fl (82-101); Nucleated Red Blood Cells % 0 %; Platelet Count 166 10^3/cmm (157-399); Red Blood Count 2.80 10^6/uL (3.85-5.65); White Blood Count 7.42 10^3/uL (3.29-11.43)
[2025-04-28 07:35] LABS: Alanine Aminotransferase 12 U/L (0-41); Albumin Level 3.1 g/dL (3.5-5.2); Alkaline Phosphatase 62 U/L (40-130); Anion Gap 17.8 (5-19); Aspartate Amino Transferase 13 U/L (0-40); Blood Urea Nitrogen 11 mg/dL (8-23); Calcium 7.7 mg/dL (8.5-10.5); Carbon Dioxide 19 mmol/L (22-29); Chloride 103 mmol/L (98-107); Creatinine Clr Calc Pharmacy 73.4429; Globulin 2.3 g/dL (1.3-4.6); Glucose 87 mg/dL (65-115); Magnesium 1.3 mg/dL (1.7-2.3); Osmolality Calculated 283 mOsm/kg (285-295); Sodium 137 mmol/L (136-145); Total Protein 5.4 g/dL (6.6-8.7)
[2025-04-28 07:53] LABS: Potassium 2.8 mmol/L (3.5-5.1)
[2025-04-28 07:57] VITALS: BP 117/79; PULSE 95; RESP 18; O2SAT 100
[2025-04-28] MEDS: multivitamin therapeutic Tablet 1 TAB PO (09:40)
[2025-04-28] MEDS: magnesium sulfate premix 1 GM/100 ML PIGGYBACK IV ×2 (09:41→15:37)
[2025-04-28 11:31] VITALS: BP 117/83; PULSE 91; RESP 17; TEMP 36.7; O2SAT 99
[2025-04-28] MEDS: sucralfate 1 gm/10 mL Oral Liq UDC PO ×2 (12:05→17:54)
[2025-04-28] MEDS: potassium phosphate (mEq K) 40 MEQ in sodium chloride 0.9% (100 ml) 100 ML 27.25 MEQ IV (12:05)
--- NOTE | 2025-04-28 12:59 | P.PN_ITS ---
Subjective 2 Subjective: No melena hematochezia Vitals/I&O/Wt Last Vital Signs Temp 98.0 F 04/28/25 11:31 Pulse 91 04/28/25 11:31 Resp 17 04/28/25 11:31 BP 117/83 04/28/25 11:31 Pulse Ox 99 04/28/25 11:31 O2 Del Method Room Air 04/28/25 11:31 O2 Flow Rate 8 04/27/25 08:57 04/27/25 04/28/25 04/28/25 22:59 06:59 14:59 Intake Total 730 / 1539.0909 350 / 350 Output Total 150 / 450 Balance 730 / 1239.0909 -150 / 1089.0909 350 / 350 Weight last 48 hrs Weight 162 lb Weight 162 lb Physical Exam 2 Narrative: rrr unlabored breathing ra abdomen soft, nt, nd Data 04/28/25 07:00 04/28/25 07:00 A&P Assessment and plan 1. GIB (gastrointestinal bleeding): Plan: 60yo male with anemia. No GIB but findings concernign for proctitis/colitis. Biopsies pending. Follow up in general surgery clinic in 2 weeks. PDMP PDMP Reviewed: Not Reviewed Attestations 2 Medical Necessity Statement*: NA Coding Level of Care Code 66371 Diagnoses GIB (gastrointestinal bleeding) K92.2
--- NOTE | 2025-04-28 14:28 | P.PN_ITS ---
Vitals/I&O/Wt Last Vital Signs Temp 98.0 F 04/28/25 11:31 Pulse 91 04/28/25 11:31 Resp 17 04/28/25 11:31 BP 117/83 04/28/25 11:31 Pulse Ox 99 04/28/25 11:31 O2 Del Method Room Air 04/28/25 11:31 O2 Flow Rate 8 04/27/25 08:57 04/27/25 04/28/25 04/28/25 22:59 06:59 14:59 Intake Total 730 / 1539.0909 350 / 350 Output Total 150 / 450 Balance 730 / 1239.0909 -150 / 1089.0909 350 / 350 Weight last 48 hrs Weight 73.482 kg Weight 73.482 kg Physical Exam 2 Const: COMMON NORMALS: no acute distress and patient oriented x3 Resp: COMMON NORMALS: normal respiratory effort, No retractions, No use of accessory muscles and clear to auscultation bilaterally AUSCULTATION: clear to auscultation bilaterally Cardio: COMMON NORMALS: regular rate, regular rhythm, S1 normal heart sound present and S2 normal heart sound present RATE: regular rate RHYTHM: r egular rhythm HEART SOUNDS: S1 normal heart sound present and S2 normal heart sound present GI: COMMON NORMALS: Normal to inspection, nondistended, normoactive bowel sounds present and non-tender Extremity: COMMON NORMALS: no pedal edema Neuro: COMMON NORMALS: patient oriented x3 Psych: COMMON NORMALS: mental status grossly normal Data 04/28/25 07:00 04/28/25 07:00 A&P Assessment and plan 1. Acute anemia: 2. Alcoholism: 3. Dehydration: 4. Acute kidney injury: 5. Adrenal insufficiency: 6. Refeeding syndrome: 7. Fluid overload: 8. GIB (gastrointestinal bleeding): 9. Bacteremia, coagulase-negative staphylococcal: Plan: Acute hypoxic respiratory failure on 2 L - Likely secondary fluid overload -CT angiogram negative for PE, venous ultrasound and for DVT - Will give 1 dose IV Lasix yesterday, good amount of diuresis will consider dose toda - Monitor respiratory status closely - ABG, respiratory therapy eval Hypokalemia, hypophosphatemia, hypomagnesemia - With history of weight loss, poor appetite - Concerns for refeeding syndrome - Replace electrolytes - Potassium, magnesium, phosphorus today - Recheck this afternoon Alcoholism, banana bag, CIWA protocol, completed Dehydration, IV fluids, banana bag, IV fluids completed Acute kidney injury, IV fluids, IV fluids completed Urinary tract infection, continue Rocephin, day 4 of 5 Weight loss, fatigue CT chest abdomen pelvis [place] [id number] IMPRESSION: 1. Advanced centrilobular emphysema. No airspace disease or mass lesion. 2. Low-attenuation blood pool is worrisome for severe anemia. IMPRESSION: 1. No abnormality identified to explain patient's weight loss. In particular, there are no findings of malignancy, but sensitivity is limited without intravenous contrast. 2. Hyperdense liver. Differential diagnosis includes hemochromatosis as well as medication effect from amiodarone or gold. 3. Tiny indeterminate focus in the liver is new from the prior exam several years ago. If patient can tolerate intravenous contrast, consider further characterization of the liver with CT or MR. 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, Jesus's disease -Given patient's soft blood pressures, - Random cortisol 8.33 - Cortisol response 60 minutes 12.83 -Continue hydrocortisone stop desmopressin due to concerns for fluid overload Acute anemia, hemoglobin 8.3, Hemoccult positive stools, hold blood thinners, status post 2 units PRBC, Protonix, Carafate, monitor hemoglobin, general surgery consulted for EGD and colonoscopy - Colonoscopy, moderate patchy inflammation in the distal sigmoid colon, colitis, rec, moderate patchy inflammation - EGD gastritis Folic acid deficiency, megaloblastic anemia, folic acid Staphylococcal bacteremia -2out of 4 blood cultures positive - Likely contamination - Cardiac echo no valvular vegetation - Vancomycin for now - Follow repeat blood cultures Low blood pressures, orthostatic positive, likely secondary dehydration, acute anemia, lactic acid within normal limits, concerns for adrenal insufficiency -Mean arterial pressure around 65, blood pressure soft - Continue fluid therapy, received 2 units PRBC unit PRBC, albumin therapy - Monitor orthostatic vitals Possible sepsis related to UTI, IV fluids, IV Rocephin, blood cultures so far negative NSTEMI CONCLUSIONS Normal left ventricular size, systolic function and wall thickness, with no regional wall motion abnormalities. Left ventricular ejection fraction is estimated at 60 %. Grade I/IV diastolic dysfunction (abnormal relaxation filling pattern), normal to mildly elevated filling pressures. Mild tricuspid valve regurgitation. Mild aortic valve calcification. No aortic valve stenosis. Trace aortic valve regurgitation. There is no pericardial effusion. Right atrial pressure is around 5 mm of mercury. Full code Has no concerns for GI bleed start heparin for DVT prophylaxis Plan for today, respiratory failure resolved, replace electrolytes will consider Lasix dose this afternoon, recheck electrolytes this afternoon PDMP PDMP Reviewed: Last Reviewed 04/24/25 18:02 by Wilmer Myers MD Attestations 2 Medical Necessity Statement*: Patient requires hospitalization for fluid overload, staph bacteremia, refeeding syndrome Diagnoses Acute anemia D64.9 Alcoholism F10.20 Dehydration E86.0 Acute kidney injury N17.9 Adrenal insufficiency E27.40 Refeeding syndrome E87.8 Fluid overload E87.70 GIB (gastrointestinal bleeding) K92.2 Bacteremia, coagulase-negative staphylococcal R78.81; B95.7
[2025-04-28 14:45] LABS: Anion Gap 19.4 (5-19); Blood Urea Nitrogen 12 mg/dL (8-23); Calcium 7.8 mg/dL (8.5-10.5); Carbon Dioxide 19 mmol/L (22-29); Chloride 100 mmol/L (98-107); Creatinine Clr Calc Pharmacy 80.7872; Glucose 92 mg/dL (65-115); Magnesium 1.6 mg/dL (1.7-2.3); Osmolality Calculated 279 mOsm/kg (285-295); Potassium 3.4 mmol/L (3.5-5.1); Sodium 135 mmol/L (136-145)
[2025-04-28] MEDS: pantoprazole 40 mg SDV IVP (15:37)
[2025-04-28 15:52] VITALS: BP 127/94; PULSE 99; RESP 17; TEMP 36.3; O2SAT 96
[2025-04-28] MEDS: potassium phosphate (mEq K) 40 MEQ in sodium chloride 0.9% (100 ml) 100 ML 25 MEQ IV (17:54)
[2025-04-28 21:00] VITALS: BP 118/88; PULSE 97; RESP 19; TEMP 36.7; O2SAT 98
[2025-04-29 05:05] LABS: Hematocrit 23.0 % (37-53); Hemoglobin 7.40 g/dL (11.27-16.99); Mean Corpuscular HGB Conc 32.2 g/dL (30-55); Mean Corpuscular Hemoglobin 28.1 pg (27-33); Mean Corpuscular Volume 87.5 fl (82-101); Nucleated Red Blood Cells % 0 %; Platelet Count 172 10^3/cmm (157-399); Red Blood Count 2.63 10^6/uL (3.85-5.65); White Blood Count 6.56 10^3/uL (3.29-11.43)
[2025-04-29] MEDS: pantoprazole 40 mg SDV IVP ×2 (05:17→15:10)
[2025-04-29] MEDS: VANCOMYCIN ADD-Vantage 750 MG in 0.9% NaCl ADD-Vantage 250 ML 250 MG IV (05:21)
[2025-04-29] MEDS: sucralfate 1 gm/10 mL Oral Liq UDC PO ×3 (05:22→17:33)
[2025-04-29 05:25] LABS: Alanine Aminotransferase 13 U/L (0-41); Albumin Level 2.8 g/dL (3.5-5.2); Alkaline Phosphatase 59 U/L (40-130); Anion Gap 14.1 (5-19); Aspartate Amino Transferase 15 U/L (0-40); Blood Urea Nitrogen 11 mg/dL (8-23); Calcium 7.7 mg/dL (8.5-10.5); Carbon Dioxide 21 mmol/L (22-29); Chloride 105 mmol/L (98-107); Creatinine Clr Calc Pharmacy 80.7872; Globulin 2.3 g/dL (1.3-4.6); Glucose 84 mg/dL (65-115); Magnesium 1.8 mg/dL (1.7-2.3); Osmolality Calculated 283 mOsm/kg (285-295); Potassium 3.1 mmol/L (3.5-5.1); Sodium 137 mmol/L (136-145); Total Protein 5.1 g/dL (6.6-8.7)
[2025-04-29 08:09] VITALS: BP 109/75; PULSE 83; RESP 16; TEMP 36.6; O2SAT 99
[2025-04-29] MEDS: multivitamin therapeutic Tablet 1 TAB PO (09:17)
[2025-04-29] MEDS: potassium phosphate (mEq K) 40 MEQ in sodium chloride 0.9% (100 ml) 100 ML 25 MEQ IV (09:18)
[2025-04-29 11:44] VITALS: BP 108/74; PULSE 91; RESP 16; TEMP 36.9; O2SAT 98
[2025-04-29 13:59] VITALS: BP 117/79; BP 124/82; BP 131/89; PULSE 102; PULSE 120; PULSE 97
--- NOTE | 2025-04-29 14:07 | PM.PN ---
Subjective Subjective: Patient was seen this morning, currently alert oriented x 3, following all commands, denies any fevers, chills, no cough, does report generalized weakness, he is reconsidering going to intermediate facility[facility], he does have wheezing, does report shortness of breath, no abdominal pain, Vitals/I&O/Wt Last Vital Signs Temp 98.5 F 04/29/25 11:44 Pulse 102 H 04/29/25 13:59 Resp 16 04/29/25 11:44 BP 131/89 04/29/25 13:59 Pulse Ox 98 04/29/25 11:44 O2 Del Method Room Air 04/29/25 11:44 O2 Flow Rate 8 04/27/25 08:57 04/28/25 04/29/25 04/29/25 22:59 06:59 14:59 Intake Total 568.1818 / 918.1818 850 / 850 Output Total 100 / 100 150 / 250 200 / 200 Balance 468.1818 / 818.1818 -150 / 668.1818 650 / 650 Weight last 48 hrs Weight 73.482 kg Weight 73.482 kg Physical Exam Const: COMMON NORMALS: no acute distress and patient oriented x3 Resp: COMMON NORMALS: normal respiratory effort, No retractions and No use of accessory muscles AUSCULTATION: crackles and wheezes Cardio: COMMON NORMALS: regular rate, regular rhythm, S1 normal heart sound present and S2 normal heart sound present RATE: regular rate RHYTHM: regular rhythm HEART SOUNDS: S1 normal heart sound present and S2 normal heart sound present GI: COMMON NORMALS: Normal to inspection, nondistended, normoactive bowel sounds present and non-tender Extremity: COMMON NORMALS: no pedal edema Neuro: COMMON NORMALS: patient oriented x3 Psych: COMMON NORMALS: mental status grossly normal Data 04/29/25 04:52 04/29/25 04:52 Micro: Microbiology 04/24/25 18:58 Blood Culture - Final Blood Staphylococcus cohnii subsp. u A&P Assessment and plan 1. Acute anemia: 2. Alcoholism: 3. Dehydration: 4. Acute kidney injury: 5. Adrenal insufficiency: 6. Refeeding syndrome: 7. Fluid overload: 8. GIB (gastrointestinal bleeding): 9. Bacteremia, coagulase-negative staphylococcal: Plan: Acute hypoxic respiratory failure on room air, but does have wheezing this morning - Likely secondary fluid overload -CT angiogram negative for PE, venous ultrasound and for DVT, shows bilateral pleural effusions - Will give 1 dose of Lasix today due to concerns for fluid overload, elevated BNP - Monitor respiratory status closely - ABG, respiratory therapy eval COPD, bullous emphysema Incompletely healed seventh rib fracture Ascites Concerns for refeeding syndrome Hypokalemia, hypophosphatemia, hypomagnesemia - With history of weight loss, poor appetite - Concerns for refeeding syndrome - Replace electrolytes - Potassium, magnesium, phosphorus today - Recheck this afternoon Alcoholism, banana bag, CIWA protocol, completed Dehydration, IV fluids, banana bag, IV fluids completed Acute kidney injury, IV fluids, IV fluids completed Urinary tract infection, completed inpatient treatment Weight loss, fatigue CT chest abdomen pelvis [place] [id number] IMPRESSION: 1. Advanced centrilobular emphysema. No airspace disease or mass lesion. 2. Low-attenuation blood pool is worrisome for severe anemia. IMPRESSION: 1. No abnormality identified to explain patient's weight loss. In particular, there are no findings of malignancy, but sensitivity is limited without intravenous contrast. 2. Hyperdense liver. Differential diagnosis includes hemochromatosis as well as medication effect from amiodarone or gold. 3. Tiny indeterminate focus in the liver is new from the prior exam several years ago. If patient can tolerate intravenous contrast, consider further characterization of the liver with CT or MR. 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, Jesus's disease -Given patient's soft blood pressures, - Random cortisol 8.33 - Cortisol response 60 minutes 12.83 -Continue hydrocortisone stop desmopressin due to concerns for fluid overload Acute anemia, hemoglobin 7.4, Hemoccult positive stools, hold blood thinners, status post 2 units PRBC, Protonix, Carafate, monitor hemoglobin, general surgery consulted for EGD and colonoscopy - Colonoscopy, moderate patchy inflammation in the distal sigmoid colon, colitis, rec, moderate patchy inflammation - EGD gastritis - Recheck hemoglobin this afternoon Folic acid deficiency, megaloblastic anemia, folic acid Staphylococcal bacteremia, likely contamination -2out of 4 blood cultures positive - Likely contamination - Cardiac echo no valvular vegetation - De-escalate to Zyvox - Follow repeat blood cultures, negative so far Low blood pressures, orthostatic positive, likely secondary dehydration, acute anemia, lactic acid within normal limits, concerns for adrenal insufficiency -Mean arterial pressure around 65, blood pressure soft - Continue fluid therapy, received 2 units PRBC unit PRBC, albumin therapy - Monitor orthostatic vitals Possible sepsis related to UTI, IV fluids, IV Rocephin, blood cultures so far negative, antibiotics discontinued NSTEMI CONCLUSIONS Normal left ventricular size, systolic function and wall thickness, with no regional wall motion abnormalities. Left ventricular ejection fraction is estimated at 60 %. Grade I/IV diastolic dysfunction (abnormal relaxation filling pattern), normal to mildly elevated filling pressures. Mild tricuspid valve regurgitation. Mild aortic valve calcification. No aortic valve stenosis. Trace aortic valve regurgitation. There is no pericardial effusion. Right atrial pressure is around 5 mm of mercury. Full code Hemoglobin is down to 7.4, continue to hold heparin continue SCDs, venous ultrasound for DVT-CT angiogram negative for PE Plan for today, up out of bed, PT OT, monitor hemoglobin, 1 dose IV Lasix, monitor for refeeding syndrome PDMP PDMP Reviewed: Last Reviewed 04/24/25 18:02 by Wilmer Myers MD Attestations Medical Necessity Statement*: Patient requires hospitalization for refeeding syndrome, acute anemia, fluid overload Diagnoses Acute anemia D64.9 Alcoholism F10.20 Dehydration E86.0 Acute kidney injury N17.9 Adrenal insufficiency E27.40 Refeeding syndrome E87.8 Fluid overload E87.70 GIB (gastrointestinal bleeding) K92.2 Bacteremia, coagulase-negative staphylococcal R78.81; B95.7
[2025-04-29] MEDS: FUROsemide 10 mg/mL SDV 4mL 40 MG IVP (15:10)
[2025-04-29 15:15] LABS: Hematocrit 24.5 % (37-53); Hemoglobin 8.00 g/dL (11.27-16.99)
[2025-04-29 16:08] VITALS: BP 110/76; PULSE 99; RESP 18; TEMP 36.6; O2SAT 98
[2025-04-29 20:00] VITALS: BP 127/80; PULSE 92; RESP 17; TEMP 36.6; O2SAT 98
[2025-04-29 23:38] VITALS: BP 110/82; PULSE 92; RESP 16; TEMP 36.6; O2SAT 98
[2025-04-30] VITALS (8 sets, daily range): BP systolic 93–126; BP diastolic 51–88; PULSE 84–105; RESP 16–19; TEMP 36.3–36.7; O2SAT 96–99
[2025-04-30] MEDS: sucralfate 1 gm/10 mL Oral Liq UDC PO ×3 (00:51→12:02)
--- NOTE | 2025-04-30 01:38 | PC.NURSE ---
Upset about padded railing Pt became very upset about his padded railing and telling staff that he feels as though he is being targeted as a drunk even though he states he hasn't drank any alcohol in weeks. Seizure precautions were explained in great detail to pt who said he wanted to take pictures of his railing and that he'd hire a event planning manager to fix the problem.
[2025-04-30 02:18] LABS: Alanine Aminotransferase 22 U/L (0-41); Albumin Level 3.1 g/dL (3.5-5.2); Alkaline Phosphatase 64 U/L (40-130); Anion Gap 15.6 (5-19); Aspartate Amino Transferase 28 U/L (0-40); Blood Urea Nitrogen 10 mg/dL (8-23); Calcium 8.1 mg/dL (8.5-10.5); Carbon Dioxide 24 mmol/L (22-29); Chloride 101 mmol/L (98-107); Creatinine Clr Calc Pharmacy 80.7872; Globulin 2.6 g/dL (1.3-4.6); Glucose 104 mg/dL (65-115); Magnesium 1.7 mg/dL (1.7-2.3); Osmolality Calculated 283 mOsm/kg (285-295); Potassium 3.6 mmol/L (3.5-5.1); Sodium 137 mmol/L (136-145); Total Protein 5.7 g/dL (6.6-8.7)
[2025-04-30 02:24] LABS: Hematocrit 23.4 % (37-53); Hemoglobin 7.80 g/dL (11.27-16.99); Mean Corpuscular HGB Conc 33.3 g/dL (30-55); Mean Corpuscular Hemoglobin 28.8 pg (27-33); Mean Corpuscular Volume 86.3 fl (82-101); Nucleated Red Blood Cells % 0 %; Platelet Count 182 10^3/cmm (157-399); Red Blood Count 2.71 10^6/uL (3.85-5.65); White Blood Count 7.14 10^3/uL (3.29-11.43)
[2025-04-30] MEDS: multivitamin therapeutic Tablet 1 TAB PO (09:29)
[2025-04-30 11:29] LABS: Plasma Renin Activity LC MS MS 0.84 ng/mL/h (0.25-5.82)
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
== END 2025-04-30 18:20 | disposition home health service (06) | DRG 811 ==
LOC: ER 18:42 → MEDSURG 20:17
PROVIDERS: Student in an Organized Health Care Education/Training Program; Admitting Provider Family Medicine; Emergency Provider Emergency Medicine; Visit Provider Family Medicine
PROC: 0DJ08ZZ Inspection of Upper Intestinal Tract, Via Natural or Artificial Opening Endoscopic (ICD-10-PCS; principal; 2025-04-27 08:00)
PROC: 0DJD8ZZ Inspection of Lower Intestinal Tract, Via Natural or Artificial Opening Endoscopic (ICD-10-PCS; CPT 45378; 2025-04-27 08:00)
DX: D53.8 Other specified nutritional anemias (principal); I21.4 Non-ST elevation (NSTEMI) myocardial infarction; K29.51 Unspecified chronic gastritis with bleeding; J96.01 Acute respiratory failure with hypoxia; K57.31 Diverticulosis of large intestine without perforation or abscess with bleeding; N39.0 Urinary tract infection, site not specified; N17.9 Acute kidney failure, unspecified; E27.40 Unspecified adrenocortical insufficiency; K52.9 Noninfective gastroenteritis and colitis, unspecified; K62.89 Other specified diseases of anus and rectum; E86.0 Dehydration; E87.70 Fluid overload, unspecified; I10 Essential (primary) hypertension; E78.5 Hyperlipidemia, unspecified; E53.8 Deficiency of other specified B group vitamins; F10.20 Alcohol dependence, uncomplicated; I25.10 Atherosclerotic heart disease of native coronary artery without angina pectoris; E87.6 Hypokalemia; E83.39 Other disorders of phosphorus metabolism; E83.42 Hypomagnesemia; J43.9 Emphysema, unspecified; Z74.01 Bed confinement status; Z79.51 Long term (current) use of inhaled steroids
CPT/HCPCS: 36415; 36416; 36430; 36600; 43235; 45380; 70450; 71045; 71250; 71275; 74018; 74176; 80048; 80051; 80053; 80061; 80202; 80306; 80307; 80503; 81001; 82088; 82274; 82330; 82533; 82550; 82607; 82728; 82746; 82805; 82962; 83010; 83036; 83540; 83550; 83605; 83615; 83735; 83880; 84100; 84145; 84244; 84443; 84484; 85014; 85018; 85025; 85378; 85610; 85730; 86140; 86850; 86900; 86920; 87040; 87077; 87150; 87186; 87205; 88305; 93005; 93306; 93970; 94664; 96372; 97110; 97162; 97167; 97530; 97535; 99285; G0378; J0696; J0834; J1644; J1938; J2270; J2470; J2704; J3372; J3373; J3411; J3475; J3480; J3490; J7030; J7042; J7050; J8499; J9999; P9016; P9046

== ENCOUNTER → 2025-05-14 10:27 | Outpatient (BNVA) | payer OTHER, SELFPAY | PROVIDERS: Visit Provider Student in an Organized Health Care Education/Training Program | DX: K52.9 Noninfective gastroenteritis and colitis, unspecified (principal); K62.89 Other specified diseases of anus and rectum | CPT/HCPCS: 99203; 99213 ==

== ENCOUNTER 2025-05-24 10:38 | Oncology outpatient (recurring) (ONCR) | payer OTHER, SELFPAY ==
[2025-05-16 11:21] LABS: Hematocrit 30.4 % (37-53); Hemoglobin 9.70 g/dL (11.27-16.99); Mean Corpuscular HGB Conc 31.9 g/dL (30-55); Mean Corpuscular Hemoglobin 29.8 pg (27-33); Mean Corpuscular Volume 93.5 fl (82-101); Nucleated Red Blood Cells % 0 %; Platelet Count 280 10^3/cmm (157-399); Red Blood Count 3.25 10^6/uL (3.85-5.65); White Blood Count 8.75 10^3/uL (3.29-11.43)
[2025-05-16 11:44] LABS: Alanine Aminotransferase 11 U/L (0-41); Albumin Level 3.4 g/dL (3.5-5.2); Alkaline Phosphatase 121 U/L (40-130); Anion Gap 13.3 (5-19); Aspartate Amino Transferase 14 U/L (0-40); Blood Urea Nitrogen 7 mg/dL (8-23); Calcium 8.6 mg/dL (8.5-10.5); Carbon Dioxide 27 mmol/L (22-29); Chloride 99 mmol/L (98-107); Creatinine Clr Calc Pharmacy 81.5733; Ferritin 650 ng/mL (30-400); Globulin 2.8 g/dL (1.3-4.6); Glucose 91 mg/dL (65-115); Iron 40 ug/dL (59-158); Osmolality Calculated 278 mOsm/kg (285-295); Potassium 4.3 mmol/L (3.5-5.1); Sodium 135 mmol/L (136-145); Total Iron Binding Capacity 122 mcg/dl; Total Protein 6.2 g/dL (6.6-8.7); Unsaturated Iron Binding 82 ug/dL (112-347)
[2025-05-16 11:59] LABS: Vitamin B12 507 pg/mL (232-1245)
--- NOTE | 2025-05-24 12:45 | US_ITS ---
WS: [id number] Complete ABDOMINAL ULTRASOUND HISTORY: liver nodules COMPARISON: CT 04/24/2022 5, 04/27/2025 Liver: 16.0 cm in length. Normal size liver. There is a hypoechoic subcapsular nodule in the RIGHT lobe measuring 1.2 x 1.0 x 0.68 cm. This corresponds to the abnormality seen on the recent CT. Portal Vein: Normal hepatopetal flow with monophasic waveform. Gallbladder: Normally distended gallbladder with no stones or wall thickening. CBD: Not measured. Pancreas: Poorly visualized. Right kidney: 9.7 cm x 4.1 x 4.8 cm. Cortex:1.5 cm. Normal size and echogenicity. No hydronephrosis or mass. Left kidney: 10.3 cm x 4.2 cm x 6.4 cm. Cortex: 1.4 cm. Normal size and echogenicity. No hydronephrosis or mass. Spleen: 8.7 cm. Normal size and echogenicity. Aorta and IVC: Unremarkable abdominal aorta and IVC. US/US abdomen complete* [id number] Impression: 1. Hypoechoic subcapsular nodule RIGHT lobe of the liver measures 1.2 x 1.0 x 0.8 cm. Very nonspecific. Differential includes complex cyst, hemangioma, metas tatic or primary lesion. Recommend follow-up ultrasound in 3 months to evaluate stability and for any interval change. 2. Negative gallbladder. 3. No hydronephrosis.
== END 2025-06-10 23:59 | disposition home or self-care (01) ==
LOC: ONCMED 10:38 → RAD 05-25
PROVIDERS: PCP Family Medicine; Visit Provider Internal Medicine
DX: K76.89 Other specified diseases of liver; Z53.9 Procedure and treatment not carried out, unspecified reason
CPT/HCPCS: 36415; 76700; 80053; 82607; 82728; 82746; 83010; 83090; 83540; 83550; 83615; 83921; 85025; 85045; 99204